=== PATIENT | female | born 1945 | race Caucasian/White ===

== ENCOUNTER 2017-01-09 14:42 | Emergency (ER) | payer MEDICARE, MEDICAID ==
[2017-01-09] MEDS ORDERED: ONDANSETRON 4 MG TAB.RAPDIS PO ONE (15:23)
[2017-01-09] MEDS ORDERED: OXYCODONE-ACETAMINOPHEN 5-325 MG TABLET PO ONE (15:23)
--- NOTE | 2017-01-09 15:25 | ER Document Report ---
ED Fall - General Chief Complaint: Fall Stated Complaint: FALL/ LEFTT SIDE PAIN Time Seen by Provider: 01/09/17 15:23 Notes: Patient is a 71-year-old female who comes emergency department for chief complaint of pain down most of her right side after a fall. She fell 2 days ago. She tripped over a baby carriage and landed on her right side. She denies head injury, neck pain, focal numbness or weakness, incontinence or bowel changes. She is not on a blood thinner. She has very few medical problems and is only treated for asthma, arthritis. Family is with her. TRAVEL OUTSIDE OF THE [place] IN LAST 30 DAYS: No Past Medical History - General Information source: Patient - Social History Smoking Status: Never Smoker Frequency of alcohol use: None Drug Abuse: None Lives with: Family Family History: Reviewed & Not Pertinent Pulmonary Medical History: Reports: Hx Asthma Renal/ Medical History: Denies: Hx Peritoneal Dialysis Musculoskeltal Medical History: Reports Hx Arthritis - Immunizations Immunizations up to date: Yes Hx Diphtheria, Pertussis, Tetanus Vaccination: Yes Review of Systems - Review of Systems Constitutional: No symptoms reported EENT: No symptoms reported Cardiovascular: No symptoms reported Respiratory: No symptoms reported Gastrointestinal: No symptoms reported Genitourinary: No symptoms reported Female Genitourinary: No symptoms reported Musculoskeletal: See HPI Skin: No symptoms reported Hematologic/Lymphatic: No symptoms reported Neurological/Psychological: No symptoms reported Physical Exam - Vital signs Vitals: Temp Pulse Resp BP Pulse Ox 98.5 F 106 H 16 153/88 H 94 01/09/17 14:49 01/09/17 14:49 01/09/17 14:49 01/09/17 14:49 01/09/17 14:49 Interpretation: Normal - General General appearance: Appears well, Alert In distress: None - HEENT Head: Normocephalic, Atraumatic Eyes: Normal Conjunctiva: Normal Extraocular movements intact: Yes Eyelashes: Normal Pupils: PERRL Nasal: Normal Mouth/Lips: Normal Mucous membranes: Normal Pharynx: Normal Neck: Normal - Respiratory Respiratory status: No respiratory distress Chest status: Tender - tender over right anterior lower ribs; no bruising, deformity, crepitus Breath sounds: Normal Chest palpation: Normal - Cardiovascular Rhythm: Regular. No: Tachycardia Heart sounds: Normal auscultation, S1 appreciated, S2 appreciated Murmur: No - Abdominal Inspection: Normal Distension: No distension Bowel sounds: Normal Tenderness: Nontender. No: Tender Organomegaly: No organomegaly - Back Back: Tender - Tender over lumbar and right paraspinal areas, no saddle anesthesia, normal thoracic and cervical exam, normal distal neurovascular exam , normal upper and lower extremity strength. - Extremities General upper extremity: Normal inspection, Nontender, Normal color, Normal ROM , Normal temperature General lower extremity: Other - Tender over right hip and proximal thigh, tender over proximal tibia and slightly over the knee generally; no swelling or deformity - Neurological Neuro grossly intact: Yes Cognition: Normal Orientation: AAOx4 [place] Coma Scale Eye Opening: Spontaneous [place] Coma Scale Verbal: Oriented [place] Coma Scale Motor: Obeys Commands [place] Coma Scale Total: 15 Speech: Normal Motor strength normal: LUE, RUE, LLE, RLE Sensory: Normal - Psychological Associated symptoms: Normal affect, Normal mood - Skin Skin Temperature: Warm Skin Moisture: Dry Skin Color: Normal Course - Re-evaluation Re-evalutation: Patient moves stiffly and has difficulty getting comfortable. However she can ambulate without difficulty. - Vital Signs Vital signs: Temp Pulse Resp BP Pulse Ox 98.1 F 79 18 147/78 H 97 01/09/17 16:44 01/09/17 16:44 01/09/17 16:44 01/09/17 16:44 01/09/17 16:44 - Diagnostic Test Radiology reviewed: Image reviewed, Reports reviewed Discharge - Discharge Clinical Impression: Rib pain, Right hip pain Fall Qualifiers: Encounter type: initial encounter Qualified Code(s): W19.XXXA - Unspecified fall, initial encounter Right knee pain Qualifiers: Chronicity: acute Qualified Code(s): M25.561 - Pain in right knee Condition: Stable Disposition: HOME, SELF-CARE Additional Instructions: No fractures are seen on your imaging, your evaluation is most consistent with soft tissue injury but no other abnormalities are found. I recommend using the patches, applying ice to your knee as well, use the pain medication if needed, if you use the pain medication also use the stool softener to avoid constipation. Follow-up with orthopedics referral for additional management. Return to the emergency department for any concerning symptoms including difficulty breathing , numbness, loss of bowel or bladder control, or any other concerning symptoms. Prescriptions: Docusate Sodium [Colace 100 mg Capsule] 100 mg PO DAILY #30 capsule Lidocaine [Lidoderm 5% (700 mg) Transdermal Patch] 1 patch TP DAILY #30 adh..patch Oxycodone HCl/Acetaminophen [Percocet 5-325 mg Tablet] 1 - 2 tab PO Q4H PRN #10 tablet PRN Reason: Referrals: STEPH BASS MD [ACTIVE STAFF] - Follow up in 1 week
--- NOTE | 2017-01-09 16:20 | RADIOLOGY REPORT (SQ) ---
EXAM DESCRIPTION: HIP RIGHT AP/LATERAL COMPLETED DATE/TIME: 01/09/2017 4:00 pm REASON FOR STUDY: fall, pain COMPARISON: None. NUMBER OF VIEWS: Two views. TECHNIQUE: AP pelvis and additional frog-leg view of the right hip. LIMITATIONS: None. FINDINGS: MINERALIZATION: Osteopenic RIGHT HIP: No fracture or dislocation. No worrisome bone lesions. No significant right hip joint sp alma narrowing or bony spurring. LEFT HIP: No fracture or dislocation. No worrisome bone lesions. No significant left hip joint spac e narrowing or bony spurring. PUBIS AND ISCHIUM: No fracture. PELVIS: No fracture. SACRUM: No fracture or dislocation. No worrisome bone lesions. LOWER LUMBAR SPINE: Disc space narrowing and facet arthropathy at L4-5 and L5-S1. SOFT TISSUES: No findings. OTHER: No other significant finding. IMPRESSION: No acute fracture right hip TECHNICAL DOCUMENTATION: JOB ID: [id number] [employer]- All Rights Reserved
--- NOTE | 2017-01-09 16:22 | RADIOLOGY REPORT (SQ) ---
EXAM DESCRIPTION: KNEE RIGHT 4 VIEWS COMPLETED DATE/TIME: 01/09/2017 4:00 pm REASON FOR STUDY: fall, pain COMPARISON: None. NUMBER OF VIEWS: Four views. TECHNIQUE: AP, lateral, and both oblique radiographic images acquired of the right knee. LIMITATIONS: None. FINDINGS: MINERALIZATION: Osteopenic BONES: No acute fracture or dislocation. No worrisome bone lesions. JOINT: Small suprapatellar knee joint effusion. Mild medial compartment joint space narrowing and aminata ny spurring. SOFT TISSUES: No soft tissue swelling. No radio-opaque foreign body. OTHER: No other significant finding. IMPRESSION: No acute fracture or malalignment. Small suprapatellar knee joint effusion TECHNICAL DOCUMENTATION: JOB ID: [id number] [employer]- All Rights Reserved
--- NOTE | 2017-01-09 16:23 | RADIOLOGY REPORT (SQ) ---
EXAM DESCRIPTION: L SPINE WHOLE COMPLETED DATE/TIME: 01/09/2017 4:00 pm REASON FOR STUDY: fall, pain COMPARISON: None. NUMBER OF VIEWS: Five views including obliques. TECHNIQUE: AP, lateral, oblique, and sacral radiographic images acquired of the lumbar spine. LIMITATIONS: None. FINDINGS: MINERALIZATION: Osteopenic SEGMENTATION: Normal. No transitional anatomy. ALIGNMENT: Normal. VERTEBRAE: Maintained height. No fracture or worrisome bone lesion. DISCS: Diffuse disc space loss of height most pronounced at L4-5 and L5-S1 POSTERIOR ELEMENTS: Pedicles and facets are intact. No pars defect or posterior arch defects. Bilat eral lower lumbar facet arthropathy with joint space narrowing and bony spurring at L3-4, L4-5, and L 5-S1 HARDWARE: None in the spine. PARASPINAL SOFT TISSUES: Normal. PELVIS: Intact as visualized. No fractures or worrisome bone lesions. SI joints intact. OTHER: Clips right upper quadrant post cholecystectomy IMPRESSION: Diffuse degenerative changes. No acute findings TECHNICAL DOCUMENTATION: JOB ID: [id number] [employer]- All Rights Reserved
--- NOTE | 2017-01-09 16:25 | RADIOLOGY REPORT (SQ) ---
EXAM DESCRIPTION: RIBS RIGHT W/PA CHEST COMPLETED DATE/TIME: 01/09/2017 4:00 pm REASON FOR STUDY: fall, right rib pain COMPARISON: None. TECHNIQUE: Frontal view of the chest and additional views of the right ribs acquired. NUMBER OF VIEWS: PA chest, right rib detail two views LIMITATIONS: None. FINDINGS: FRONTAL CXR: No pneumothorax. No pleural effusion. No atelectasis or infiltrates. Cardi ac silhouette size, abena unremarkable. RIBS: No displaced rib fractures. No lytic or blastic bony lesions. OTHER: No other significant finding. IMPRESSION: NO PNEUMOTHORAX. NO DISPLACED RIB FRACTURES. COMMENT: SITE OF TRAUMA/COMPLAINT MARKED/STAMP COMPLETED: Yes TECHNICAL DOCUMENTATION: JOB ID: [id number] [employer]- All Rights Reserved
[2017-01-09 16:45] VITALS: BP 147/78
== END 2017-01-09 16:45 | disposition home or self-care (01) ==
LOC: ER 14:42
DX: R07.81 Pleurodynia (principal); M25.561 Pain in right knee; M25.551 Pain in right hip; W01.0XXA Fall on same level from slipping, tripping and stumbling without subsequent striking against object, initial encounter
CPT/HCPCS: 99283; 73502; 73564; 72110; 71101; A9270 ×2; S0119

== ENCOUNTER 2017-01-18 14:32 | Observation (INO) | payer MEDICARE, MEDICAID ==
[~2017-01-18 14:32] MED LIST: AMINOPHYLLINE INJ/PF 250 MG/10 ML SDV IV ONE; REGADENOSON INJ 0.4 MG/5 ML DISP.SYRIN IV ONE
--- NOTE | 2017-01-18 15:14 | ER Document Report ---
ED Medical Screen (RME) - General Chief Complaint: Chest Pain Stated Complaint: CHEST PAIN Time Seen by Provider: 01/18/17 15:12 Notes: Patient presents with chest pain going to the left arm. She also feels weak and short of breath. Her heart has been racing. Some nausea. Patient denies any previous history of coronary artery disease. No previous history of pulmonary embolism. She states she has had several weeks of a right leg swelling. She states she was told this was secondary to a "bad knee". Patient denies tobacco use. Patient denies hormone use. Patient denies any cough cold or congestion. TRAVEL OUTSIDE OF THE [place] IN LAST 30 DAYS: No - Related Data Allergies/Adverse Reactions: Sulfa (Sulfonamide Antibiotics) Allergy (Verified 01/18/17 14:55) latex Adverse Reaction (Verified 01/18/17 15:06) Past Medical History - Social History Chew tobacco use (# tins/day): No Frequency of alcohol use: None Drug Abuse: None Pulmonary Medical History: Reports: Hx Asthma Renal/ Medical History: Denies: Hx Peritoneal Dialysis Musculoskeltal Medical History: Reports Hx Arthritis Past Surgical History: Reports: Hx Cholecystectomy, Hx Gynecologic Surgery - ovary removal - Immunizations Immunizations up to date: Yes Hx Diphtheria, Pertussis, Tetanus Vaccination: Yes Physical Exam - Vital signs Vitals: Temp Pulse Resp BP Pulse Ox 98.0 F 111 H 18 133/65 H 99 01/18/17 14:55 01/18/17 14:55 01/18/17 14:55 01/18/17 14:55 01/18/17 14:55 Course - Vital Signs Vital signs: Temp Pulse Resp BP Pulse Ox 98.0 F 111 H 18 133/65 H 99 01/18/17 14:55 01/18/17 14:55 01/18/17 14:55 01/18/17 14:55 01/18/17 14:55
[2017-01-18 16:11] LABS: ABSOLUTE BASOPHILS # (AUTO) 0.1 10^3/uL (0.0-0.2); ABSOLUTE EOSINOPHILS # (AUTO) 0.1 10^3/uL (0.0-0.6); ABSOLUTE LYMPHOCYTES (AUTO) 2.9 10^3/uL (0.5-4.7); ABSOLUTE MONOCYTES (AUTO) 1.1 10^3/uL (0.1-1.4); ABSOLUTE NEUT (AUTO) 7.4 10^3/uL (1.7-8.2); BASOPHILS % (AUTO) 0.5 % (0-2); EOSINOPHILS % (AUTO) 0.7 % (0-6); HEMATOCRIT 44.4 % (36.0-47.0); HEMOGLOBIN 14.7 g/dL (12.0-15.5); HGB HCT DIFFERENCE -0.3; LYMPHOCYTES % (AUTO) 25.4 % (13-45); MEAN CORPUSCULAR HEMOGLOBIN 29.3 pg (27.0-33.4); MEAN CORPUSCULAR HGB CONC 33.1 g/dL (32.0-36.0); MEAN CORPUSCULAR VOLUME 89 fl (80-97); MONOCYTES % (AUTO) 9.5 % (3-13); RED BLOOD COUNT 5.02 10^6/uL (3.72-5.28); RED CELL DISTRIBUTION WIDTH 14.4 % (11.5-14.0); SEGMENTED NEUTROPHILS % (AUTO) 63.9 % (42-78); WHITE BLOOD COUNT 11.6 10^3/uL (4.0-10.5)
[2017-01-18 16:22] LABS: ALANINE AMINOTRANSFERASE 25 U/L (9-52); ALBUMIN 4.5 g/dL (3.5-5.0); ALKALINE PHOSPHATASE 81 U/L (38-126); ANION GAP 8 (5-19); ASPARTATE AMINO TRANSFERASE 17 U/L (14-36); BILIRUBIN,DIRECT 0.3 mg/dL (0.0-0.4); BILIRUBIN,TOTAL 0.4 mg/dL (0.2-1.3); BLOOD UREA NITROGEN 15 mg/dL (7-20); CALCIUM 10.7 mg/dL (8.4-10.2); CARBON DIOXIDE 32 mmol/L (22-30); CHLORIDE 102 mmol/L (98-107); CREATININE RESULT 0.68 mg/dL (0.52-1.25); GLUCOSE 77 mg/dL (75-110); POTASSIUM 4.3 mmol/L (3.6-5.0); SODIUM 141.9 mmol/L (137-145); TOTAL PROTEIN 7.9 g/dL (6.3-8.2)
--- NOTE | 2017-01-18 16:45 | RADIOLOGY REPORT (SQ) ---
EXAM DESCRIPTION: CHEST PA/LAT COMPLETED DATE/TIME: 01/18/2017 4:34 pm REASON FOR STUDY: sob/cp COMPARISON: None. EXAM PARAMETERS: NUMBER OF VIEWS: two views TECHNIQUE: Digital Frontal and Lateral radiographic views of the chest acquired. RADIATION DOSE: NA LIMITATIONS: none FINDINGS: LUNGS AND PLEURA: No opacities, masses or pneumothorax. No pleural effusion. MEDIASTINUM AND HILAR STRUCTURES: No masses or contour abnormalities. HEART AND VASCULAR STRUCTURES: Heart normal size. No evidence for failure. BONES: No acute findings. HARDWARE: None in the chest. OTHER: No other significant finding. IMPRESSION: NO SIGNIFICANT RADIOGRAPHIC FINDING IN THE CHEST. TECHNICAL DOCUMENTATION: JOB ID: [id number] [employer]- All Rights Reserved
--- NOTE | 2017-01-18 17:00 | ER Document Report ---
ED Cardiac - General Chief Complaint: Chest Pain Stated Complaint: CHEST PAIN Time Seen by Provider: 01/18/17 15:12 Mode of Arrival: Ambulatory Information source: Patient TRAVEL OUTSIDE OF THE [place] IN LAST 30 DAYS: No - HPI Patient complains to provider of: Chest pain Was the onset of pain: Gradual Is the pain a: New problem Quality of pain: Achy Chest pain radiation location: Left arm, Neck Severity now: Moderate Severity at worst: Moderate Chest pain precipitating factors: At Rest Associated symptoms: Shortness of breath, Weakness Exacerbated by: Denies Relieved by: Nothing Similar symptoms previously: No Recently seen / treated by doctor: No Notes: Patient is a 71-year-old female with a history of asthma and arthritis who presents to the emergency room today for 3 day history of left-sided chest pain that radiates to the left neck and left arm, it is associated with generalized malaise, shortness of breath, patient is from [place], having come down here approximately 1 month ago by car to stay with her daughter and is planning on moving to the area eventually, she has no history of coronary artery disease, she does report some intermittent leg cramps, no history of DVT, no hormone replacement therapy - Related Data Allergies/Adverse Reactions: Sulfa (Sulfonamide Antibiotics) Allergy (Verified 01/18/17 14:55) latex Adverse Reaction (Verified 01/18/17 15:06) Home Medications: Current Home Medications Albuterol Sulfate [Proair HFA] 2 puff IH QIDP PRN 01/18/17 [History] Budesonide/Formoterol Fumarate [Symbicort Hfa 160-4.5 Mcg Inhaler 6 gm] 2 puff IH Q12 01/18/17 [History] Cetirizine HCl [Zyrtec 10 mg Tablet] 1 tab PO DAILY 01/18/17 [History] Docusate Sodium [Colace 100 mg Capsule] 100 mg PO DAILY 01/18/17 [History] Famotidine [Pepcid 20 mg Tablet] 20 mg PO QAM 01/18/17 [History] Fluticasone Propionate [Flonase Nasal [place] 50 Mcg/[place] 16 gm] 2 sprays NASL DAILY 01/18/17 [History] Lorazepam [Ativan 0.5 mg Tablet] 0.5 mg PO DAILYP PRN 01/18/17 [History] Olopatadine HCl [Pazeo] 1 drop OU DAILY 01/18/17 [History] Tramadol HCl [Ultram 50 mg Tablet] 50 mg PO Q8HP PRN 01/18/17 [History] Trazodone HCl [Desyrel] 75 mg PO QHS 01/18/17 [History] Past Medical History - General Information source: Patient - Social History Smoking Status: Never Smoker Chew tobacco use (# tins/day): No Frequency of alcohol use: None Drug Abuse: None Family History: Reviewed & Not Pertinent Pulmonary Medical History: Reports: Hx Asthma Renal/ Medical History: Denies: Hx Peritoneal Dialysis Musculoskeltal Medical History: Reports Hx Arthritis Past Surgical History: Reports: Hx Cholecystectomy, Hx Gynecologic Surgery - ovary removal - Immunizations Immunizations up to date: Yes Hx Diphtheria, Pertussis, Tetanus Vaccination: Yes Review of Systems - Review of Systems Constitutional: Malaise EENT: No symptoms reported Cardiovascular: See HPI Respiratory: See HPI Gastrointestinal: No symptoms reported Genitourinary: No symptoms reported Female Genitourinary: No symptoms reported Musculoskeletal: No symptoms reported Skin: No symptoms reported Hematologic/Lymphatic: No symptoms reported Neurological/Psychological: No symptoms reported -: Yes All other systems reviewed and negative Physical Exam - Vital signs Vitals: Temp Pulse Resp BP Pulse Ox 98.0 F 111 H 18 133/65 H 99 01/18/17 14:55 01/18/17 14:55 01/18/17 14:55 01/18/17 14:55 01/18/17 14:55 Interpretation: Normal - General General appearance: Appears well, Alert - HEENT Head: Normocephalic, Atraumatic Eyes: Normal Conjunctiva: Normal Extraocular movements intact: Yes Eyelashes: Normal Pupils: PERRL Neck: Other - Tenderness to palpate in left sternocleidomastoid muscle - Respiratory Respiratory status: No respiratory distress Chest status: Nontender Breath sounds: Normal Chest palpation: Normal - Cardiovascular Rhythm: Tachycardia Heart sounds: Normal auscultation Murmur: No - Abdominal Inspection: Normal Distension: No distension Bowel sounds: Normal Tenderness: Nontender Organomegaly: No organomegaly - Back Back: Normal, Nontender - Extremities General upper extremity: Normal inspection, Nontender, Normal color, Normal ROM , Normal temperature General lower extremity: Normal inspection, Nontender, Normal color, Normal ROM , Normal temperature, Normal weight bearing. No: Timo's sign - Neurological Neuro grossly intact: Yes Cognition: Normal Orientation: AAOx4 [place] Coma Scale Eye Opening: Spontaneous [place] Coma Scale Verbal: Oriented [place] Coma Scale Motor: Obeys Commands [place] Coma Scale Total: 15 Speech: Normal Motor strength normal: LUE, RUE, LLE, RLE Sensory: Normal - Psychological Associated symptoms: Normal affect, Normal mood - Skin Skin Temperature: Warm Skin Moisture: Dry Skin Color: Normal Course - Re-evaluation Re-evalutation: 01/19/17 00:48 Patient's evaluation in the emergency room is unremarkable thus far, however her symptoms are concerning for coronary artery disease, therefore she was discussed with the hospitalist who agrees to admit for further evaluation and treatment - Vital Signs Vital signs: Temp Pulse Resp BP Pulse Ox 98.4 F 89 18 133/61 H 97 01/18/17 21:53 01/18/17 21:53 01/18/17 21:53 01/18/17 21:53 01/18/17 21:53 - Laboratory Result Diagrams: 01/18/17 15:45 01/18/17 15:45 Laboratory results interpreted by me: 01/18/17 01/18/17 15:45 15:45 WBC 11.6 H RDW 14.4 H Carbon Dioxide 32 H Calcium 10.7 H - Diagnostic Test Radiology reviewed: Image reviewed, Reports reviewed - EKG Interpretation by Wy EKG shows normal: Sinus rhythm Rate: Tachycardia - Transfer of Care Care transferred to following provider: Dr. Webber Discharge - Discharge Clinical Impression: Chest pain Qualifiers: Chest pain type: unspecified Qualified Code(s): R07.9 - Chest pain, unspecified Condition: Stable Disposition: ADMITTED OBSERVATION Admitting Provider: Hospitalist Unit Admitted: Telemetry
--- NOTE | 2017-01-18 17:54 | RADIOLOGY REPORT (SQ) ---
EXAM DESCRIPTION: CTA CHEST COMPLETED DATE/TIME: 01/18/2017 5:21 pm REASON FOR STUDY: SOB COMPARISON: 01/19/2016 TECHNIQUE: CT scan of the chest performed using helical scanning technique with dynamic intravenous contrast injection. Images reviewed with lung, soft tissue and bone windows. Reconstructed coronal and sagittal MPR images reviewed. Additional 3 dimensional post-processing performed to develop Maximal Intensity Projection images (PR P). All images stored on PACS. All CT scanners at this facility use dose modulation, iterative reconstruction, and/or weight based d osing when appropriate to reduce radiation dose to as low as reasonably achievable (ALARA). [facility]: Dose Right [facility]: CareDose [facility]: Dose Right [facility]: Teradose 4D [facility]: SiSense CONTRAST TYPE AND DOSE: contrast/concentration: Isovue 370.00 mg/ml; Total Contrast Delivered: 63.0 ml; Total Saline Delivered: 103.1 ml RENAL FUNCTION: GFR > 60. RADIATION DOSE: Up-to-date CT equipment and radiation dose reduction techniques were employed. CTDIv ol: 14.3 - 16.5 mGy. DLP: 514 mGy-cm. . LIMITATIONS: None. FINDINGS: LUNGS AND PLEURA: No masses, infiltrates, pneumothorax. No pleural effusions, calcificati ons. AORTA AND GREAT VESSELS: No aneurysm or dissection. HEART: No pericardial effusion. PULMONARY ARTERIES: No emboli visualized in the main pulmonary arteries or the segmental branches. HILAR AND MEDIASTINAL STRUCTURES: No identified masses or abnormal nodes. HARDWARE: None in the chest. UPPER ABDOMEN: No significant findings. Limited exam. THYROID AND OTHER SOFT TISSUES: No masses. No adenopathy. BONES: No acute or significant finding. 3D MIPS: Confirm above findings. OTHER: No other significant finding. IMPRESSION: NORMAL CTA OF THE CHEST. NO PULMONARY EMBOLI. TECHNICAL DOCUMENTATION: JOB ID: [id number] Quality ID # [id number]: Final reports with documentation of one or more dose reduction techniques (e.g., Au tomated exposure control, adjustment of the mA and/or kV according to patient size, use of iterative reconstruction technique) 2010 [employer]- All Rights Reserved
[2017-01-18] MEDS ORDERED: ASPIRIN 81 MG TABLET, CHEWABLE PO ONE (18:19)
[2017-01-18] MEDS ORDERED: LACTULOSE SYRUP 20 GM/30 ML UDCUP PO ONE (19:41)
[2017-01-18] MEDS ORDERED: NITROGLYCERIN 0.4 MG/TAB 25 TAB/BOTTLE SL PRN (19:42)
[2017-01-18] MEDS ORDERED: MAG HYDROX/AL HYDROX/SIMETH SUSP 30 ML UDCUP PO PRN (19:42)
[2017-01-18 22:23] LABS: CREATINE KINASE MB 0.97 ng/mL (<4.55)
[2017-01-18 22:27] LABS: TROPONIN I < 0.012 ng/mL
[2017-01-18] MEDS ORDERED: BUDESONIDE/FORMOTEROL 160-4.5 MCG 60 PUFF/6 GM MDI IH ONE ×2 (22:57→23:15)
[2017-01-18] MEDS ORDERED: TRAZODONE HCL 50 MG TABLET PO ONE (23:00)
[2017-01-18] MEDS: ATORVASTATIN CALCIUM 80 MG TABLET PO SCH (23:08)
[2017-01-18] MEDS: HEPARIN SOD (PORCINE) 5,000 UNIT/ML 1 ML SYRINGE SUBCUT SCH (23:08)
--- NOTE | 2017-01-18 23:19 | EKG REPORT ---
SEVERITY:- ABNORMAL ECG - SINUS TACHYCARDIA RIGHT ATRIAL ABNORMALITY : Confirmed by: Ronit House 18-Jan-2017 23:18:59
--- NOTE | 2017-01-19 03:19 | PDOC H&P ---
History of Present Illness Admission Date/PCP: 01/18/17 19:42 Patient complains of: Left-sided chest pain History of Present Illness: RADHA AMOS is a 71 year old female with a past medical history of asthma , osteoarthritis and anxiety. Presenting after 5 days of left-sided chest pain occurring while at rest aching and crushing in nature 3 out of 5 intensity radiating to the left neck and shoulder reproducible by palpation of the musculature of the chest wall. Associated with shortness of breath. Deep breathing and moving seem to exacerbate the pain and alleviated by rest. Patient admits previous episode of chest pain associated with asthma and cough prompting and treadmill stress test 2 months ago which is reportedly normal. In the emergency room she had a unremarkable workup including EKG, cardiac enzymes and CTA of the chest she is referred to the hospitalist for evaluation. Past Medical History Pulmonary Medical History: Reports: Asthma Musculoskeltal Medical History: Reports: Arthritis Psychiatric Medical History: Reports: General Anxiety Disorder Past Surgical History Past Surgical History: Reports: Cholecystectomy Social History Information Source: Patient Lives with: Alone Smoking Status: Never Smoker Frequency of Alcohol Use: None Hx Recreational Drug Use: No Hx Prescription Drug Abuse: No - Advance Directive Resuscitation Status: Full Code Family History Family History: CAD, Malignancy Parental Family History Reviewed: Yes Children Family History Reviewed: Yes Sibling(s) Family History Reviewed.: Yes Medication/Allergy Home Medications: Albuterol Sulfate [Proair HFA] 2 puff IH QIDP PRN 01/18/17 Budesonide/Formoterol Fumarate [Symbicort Hfa 160-4.5 Mcg Inhaler 6 gm] 2 puff IH Q12 01/18/17 Cetirizine HCl [Zyrtec 10 mg Tablet] 1 tab PO DAILY 01/18/17 Docusate Sodium [Colace 100 mg Capsule] 100 mg PO DAILY 01/18/17 Famotidine [Pepcid 20 mg Tablet] 20 mg PO QAM 01/18/17 Fluticasone Propionate [Flonase Nasal [place] 50 Mcg/[place] 16 gm] 2 sprays NASL DAILY 01/18/17 Lorazepam [Ativan 0.5 mg Tablet] 0.5 mg PO DAILYP PRN 01/18/17 Olopatadine HCl [Pazeo] 1 drop OU DAILY 01/18/17 Tramadol HCl [Ultram 50 mg Tablet] 50 mg PO Q8HP PRN 01/18/17 Trazodone HCl [Desyrel] 75 mg PO QHS 01/18/17 Allergies/Adverse Reactions: Sulfa (Sulfonamide Antibiotics) Allergy (Verified 01/18/17 14:55) latex Adverse Reaction (Verified 01/18/17 15:06) Review of Systems Constitutional: ABSENT: chills, fever(s), headache(s), weight gain, weight loss Eyes: ABSENT: visual disturbances Ears: ABSENT: hearing changes Cardiovascular: ABSENT: chest pain, dyspnea on exertion, edema, orthropnea, palpitations Respiratory: ABSENT: cough, hemoptysis Gastrointestinal: ABSENT: abdominal pain, constipation, diarrhea, hematemesis, hematochezia, nausea, vomiting Genitourinary: ABSENT: dysuria, hematuria Musculoskeletal: ABSENT: joint swelling Integumentary: ABSENT: rash, wounds Neurological: ABSENT: abnormal gait, abnormal speech, confusion, dizziness, focal weakness, syncope Psychiatric: ABSENT: anxiety, depression, homidical ideation, suicidal ideation Endocrine: ABSENT: cold intolerance, heat intolerance, polydipsia, polyuria Hematologic/Lymphatic: ABSENT: easy bleeding, easy bruising Physical Exam Vital Signs: Temp Pulse Resp BP Pulse Ox 98.4 F 89 18 133/61 H 97 01/18/17 21:53 01/18/17 21:53 01/18/17 21:53 01/18/17 21:53 01/18/17 21:53 Intake & Output 01/17/17 01/18/17 01/19/17 11:59 11:59 11:59 Weight 57.4 kg General appearance: PRESENT: no acute distress, cooperative, well-developed, well-nourished Head exam: PRESENT: atraumatic, normocephalic Eye exam: PRESENT: conjunctiva pink, EOMI, PERRLA. ABSENT: scleral icterus Ear exam: PRESENT: normal external ear exam Mouth exam: PRESENT: moist, tongue midline Neck exam: ABSENT: carotid bruit, JVD, lymphadenopathy, thyromegaly Respiratory exam: PRESENT: clear to auscultation elliot. ABSENT: accessory muscle use, crackles, decreased breath sounds, prolonged expiratory phas, rales, rhonchi, wheezes Cardiovascular exam: PRESENT: RRR. ABSENT: diastolic murmur, rubs, systolic murmur Pulses: PRESENT: normal dorsalis pedis pul Vascular exam: PRESENT: normal capillary refill GI/Abdominal exam: PRESENT: normal bowel sounds, soft. ABSENT: distended, guarding, mass, organolmegaly, rebound, tenderness Torso Front/Back Image: 1 - Pain to palpation of musculature Rectal exam: PRESENT: deferred Extremities exam: PRESENT: full ROM. ABSENT: calf tenderness, clubbing, pedal edema Musculoskeletal exam: PRESENT: other - Left upper chest wall tender to palpation. Neurological exam: PRESENT: alert, awake, oriented to person, oriented to place , oriented to time, oriented to situation, CN II-XII grossly intact. ABSENT: motor sensory deficit Psychiatric exam: PRESENT: anxious Skin exam: PRESENT: dry, intact, warm. ABSENT: cyanosis, rash Results Laboratory Results: 01/18/17 21:50 CK-MB (CK-2) 0.97 Troponin I < 0.012 Impressions: Chest X-Ray 01/18/17 15:12 IMPRESSION: NO SIGNIFICANT RADIOGRAPHIC FINDING IN THE CHEST. Chest/Abdomen CTA 01/18/17 17:00 IMPRESSION: NORMAL CTA OF THE CHEST. NO PULMONARY EMBOLI. Assessment & Plan - Diagnosis (1) Chest pain Qualifiers: Chest pain type: unspecified Qualified Code(s): R07.9 - Chest pain, unspecified Is this a current diagnosis for this admission?: Yes Plan: Atypical chest pain though the patient's pain is atypical there are multiple risk factors for coronary artery disease and subsequently will observe and evaluation of acute coronary syndrome versus coronary artery disease with anginal equivalents. Cardiac monitoring blood pressure Q6 hours ,TSH, lipid profile, serial cardiac enzymes and cardiac stress test (2) Anxiety Is this a current diagnosis for this admission?: Yes Plan: Trazodone as needed (3) Constipation Is this a current diagnosis for this admission?: Yes Plan: Lactulose and Colace ordered - Time Time Spent: 30 to 50 Minutes
[2017-01-19 04:40] LABS: ANION GAP 11 (5-19); BLOOD UREA NITROGEN 17 mg/dL (7-20); CALCIUM 9.8 mg/dL (8.4-10.2); CARBON DIOXIDE 27 mmol/L (22-30); CHLORIDE 103 mmol/L (98-107); CHOLESTEROL 244.81 mg/dL (0-200); CREATINE KINASE 37 U/L (30-135); CREATININE RESULT 0.79 mg/dL (0.52-1.25); Direct HDL 57 mg/dL (>40); GLUCOSE 105 mg/dL (75-110); POTASSIUM 4.6 mmol/L (3.6-5.0); SODIUM 140.8 mmol/L (137-145); TRIGLYCERIDES 203 mg/dL (<150)
[2017-01-19 04:51] LABS: DIRECT LDL 140 mg/dL (<100)
[2017-01-19 04:53] LABS: TROPONIN I < 0.012 ng/mL; VLDL CHOLESTEROL 40.6 mg/dL (10-31)
[2017-01-19] MEDS: HEPARIN SOD (PORCINE) 5,000 UNIT/ML 1 ML SYRINGE SUBCUT SCH ×3 (05:19→22:09)
[2017-01-19] MEDS: BUDESONIDE/FORMOTEROL 160-4.5 MCG 60 PUFF/6 GM MDI IH SCH ×2 (10:56→22:04)
[2017-01-19] MEDS: DOCUSATE SODIUM 100 MG CAPSULE PO SCH (10:57)
[2017-01-19] MEDS ORDERED: ALBUTEROL SULFATE HFA (90 MCG/PUFF) 8 GM MDI (1 MDI/ER DISP) IH PRN (11:00)
[2017-01-19] MEDS ORDERED: LORAZEPAM 0.5 MG TABLET PO PRN (11:00)
[2017-01-19] MEDS ORDERED: TRAMADOL HCL 50 MG TABLET PO PRN (11:00)
[2017-01-19 11:24] LABS: CREATINE KINASE MB 0.95 ng/mL (<4.55)
[2017-01-19 11:27] LABS: TROPONIN I < 0.012 ng/mL
[2017-01-19] MEDS ORDERED: ALBUTEROL SULFATE HFA (90 MCG/PUFF) 200 PUFF/8.5 GM MDI IH PRN (11:30)
[2017-01-19] MEDS ORDERED: FLUTICASONE NASAL SPRAY 50 MCG/SPRY 120 SPRAY/16 GM NASL ONE (12:30)
[2017-01-19] MEDS ORDERED: FAMOTIDINE 20 MG TABLET PO ONE (12:30)
[2017-01-19] MEDS ORDERED: CETIRIZINE 10 MG TABLET PO ONE (12:30)
[2017-01-19 13:53] LABS: APPEARANCE,URINE SLIGHTLY-CLOUDY; BILIRUBIN,URINE NEGATIVE (NEGATIVE); GLUCOSE, URINE NEGATIVE (NEGATIVE); KETONES,URINE NEGATIVE (NEGATIVE); LEUKOCYTE ESTERASE,URINE MODERATE (NEGATIVE); NITRITE,URINE NEGATIVE (NEGATIVE); PROTEIN,URINE NEGATIVE (NEGATIVE); URINE SPECIFIC GRAVITY 1.026; UROBILINOGEN,URINE NEGATIVE mg/dL (<2.0)
[2017-01-19] MEDS ORDERED: LIDOCAINE 5% (700 MG) TRANSDERMAL ADH..PATCH TP ONE (14:15)
[2017-01-19] MEDS: LIDOCAINE 5% (700 MG) TRANSDERMAL ADH..PATCH TP SCH (14:38)
--- NOTE | 2017-01-19 15:45 | PDOC PROGRESS REPORT ---
Subjective Progress Note for:: 01/19/17 Subjective:: Patient still complains of some substernal pain that radiates up into her throat area. She does have acid reflux. Physical Exam Vital Signs: Temp Pulse Resp BP Pulse Ox 98.4 F 86 18 133/61 H 97 01/18/17 21:53 01/19/17 07:00 01/18/17 21:53 01/18/17 21:53 01/18/17 21:53 Intake & Output 01/18/17 01/19/17 01/20/17 06:59 06:59 06:59 Intake Total 440 Output Total 650 Balance -210 Weight 57.4 kg General appearance: PRESENT: no acute distress Eye exam: PRESENT: conjunctiva pink. ABSENT: scleral icterus Mouth exam: PRESENT: moist, tongue midline Neck exam: ABSENT: JVD Respiratory exam: PRESENT: clear to auscultation elliot. ABSENT: rales, rhonchi, wheezes Cardiovascular exam: PRESENT: RRR. ABSENT: diastolic murmur, rubs, systolic murmur GI/Abdominal exam: PRESENT: normal bowel sounds, soft. ABSENT: distended, guarding, mass, organolmegaly, rebound, tenderness Extremities exam: ABSENT: calf tenderness, clubbing, pedal edema Neurological exam: PRESENT: alert, awake, oriented to person, oriented to place , oriented to time, oriented to situation, CN II-XII grossly intact. ABSENT: motor sensory deficit Psychiatric exam: PRESENT: appropriate affect Skin exam: PRESENT: dry, intact, warm. ABSENT: cyanosis, rash Results Laboratory Results: 01/19/17 04:05 01/19/17 01/19/17 04:05 13:27 Sodium 140.8 Potassium 4.6 Chloride 103 Carbon Dioxide 27 Anion Gap 11 BUN 17 Creatinine 0.79 Est GFR ( Amer) > 60 Est GFR (Non-Af Amer) > 60 Glucose 105 Calcium 9.8 Triglycerides 203 H Cholesterol 244.81 H LDL Cholesterol Direct 140 H VLDL Cholesterol 40.6 H HDL Cholesterol 57 Urine Color YELLOW Urine Appearance SLIGHTLY-CLOUDY Urine pH 5.0 Ur Specific [place] 1.026 Urine Protein NEGATIVE Urine Glucose (UA) NEGATIVE Urine Ketones NEGATIVE Urine Blood NEGATIVE Urine Nitrite NEGATIVE Ur Leukocyte Esterase MODERATE H Urine WBC (Auto) 1 Urine RBC (Auto) 0 01/18/17 01/19/17 01/19/17 21:50 04:05 04:05 Creatine Kinase 37 CK-MB (CK-2) 0.97 0.90 Troponin I < 0.012 < 0.012 01/19/17 10:07 Creatine Kinase CK-MB (CK-2) 0.95 Troponin I < 0.012 Impressions: Chest X-Ray 01/18/17 15:12 IMPRESSION: NO SIGNIFICANT RADIOGRAPHIC FINDING IN THE CHEST. Chest/Abdomen CTA 01/18/17 17:00 IMPRESSION: NORMAL CTA OF THE CHEST. NO PULMONARY EMBOLI. Assessment & Plan - Diagnosis (1) Chest pain Qualifiers: Chest pain type: unspecified Qualified Code(s): R07.9 - Chest pain, unspecified Is this a current diagnosis for this admission?: Yes Plan: This most likely represents gastroesophageal reflux disease. Patient reports that she had a treadmill stress test approximately 2 months ago in [place]. Given recurrent nature, Will ask cardiology to evaluate to see if any further intervention needs to be done. (2) Gastroesophageal reflux disease Is this a current diagnosis for this admission?: Yes Plan: Patient has taken Dexilant in the past for her gastroesophageal reflux disease. (3) Anxiety Is this a current diagnosis for this admission?: Yes Plan: Continue with trazodone and Ativan. - Time Time Spent with patient: 25-34 minutes
[2017-01-19] MEDS ORDERED: PHENAZOPYRIDINE HCL 100 MG TABLET PO ONE (16:00)
[2017-01-19] MEDS ORDERED: TRAZODONE HCL 75 MG PO SCH (22:00)
[2017-01-19] MEDS ORDERED: TRAZODONE HCL 50 MG TABLET PO SCH (22:00)
[2017-01-19] MEDS ORDERED: BUDESONIDE/FORMOTEROL 160-4.5 MCG 60 PUFF/6 GM MDI IH SCH (22:00)
[2017-01-19] MEDS: PHENAZOPYRIDINE HCL 100 MG TABLET PO SCH (22:03)
[2017-01-19] MEDS: ATORVASTATIN CALCIUM 80 MG TABLET PO SCH (22:09)
[2017-01-20] MEDS: HEPARIN SOD (PORCINE) 5,000 UNIT/ML 1 ML SYRINGE SUBCUT SCH (05:06)
[2017-01-20] MEDS ORDERED: FAMOTIDINE 20 MG TABLET PO SCH (08:00)
[2017-01-20] MEDS ORDERED: FLUTICASONE NASAL SPRAY 50 MCG/SPRY 120 SPRAY/16 GM NASL SCH ×2 (10:00)
[2017-01-20] MEDS ORDERED: (PENDING PHARMACY ID) (Olopatadine Hcl [Pazeo] 1 DROP) OU SCH (10:00)
[2017-01-20] MEDS ORDERED: OLOPATADINE HCL 0.1% OPH SOLN 5 ML OU SCH (10:00)
[2017-01-20] MEDS ORDERED: CETIRIZINE 10 MG TABLET PO SCH ×2 (10:00)
[2017-01-20] MEDS ORDERED: DOCUSATE SODIUM 100 MG CAPSULE PO SCH (10:00)
[2017-01-20] MEDS: BUDESONIDE/FORMOTEROL 160-4.5 MCG 60 PUFF/6 GM MDI IH SCH (10:37)
[2017-01-20] MEDS: PHENAZOPYRIDINE HCL 100 MG TABLET PO SCH (10:39)
[2017-01-20] MEDS: DOCUSATE SODIUM 100 MG CAPSULE PO SCH (10:40)
[2017-01-20] MEDS: LIDOCAINE 5% (700 MG) TRANSDERMAL ADH..PATCH TP SCH (10:40)
--- NOTE | 2017-01-20 12:23 | DRAGON STRESS TEST REPORT ---
INTRAVENOUS LEXISCAN CARDIOLITE STRESS TEST USING SINGLE PHOTON EMMISION COMPUTERIZED TOMOGRAPHIC. DATE OF PROCEDURE: January 20, 2017 INDICATION : Chest pain CARDIAC RISK FACTORS: Dyslipidemia RESTING EKG: Sinus rhythm without any baseline ST-T wave changes STRESS EKG: No significant changes noted with LexiScan bolus REASON FOR TERMINATION: Protocol. PROCEDURE REPORT: Baseline heart rate 117 beats per minute with blood pressure of 126/72. Patient had no significant complaints. Heart rate at 2 minutes post bolus 122 with a blood pressure of 155/79. 3 minutes post bolus heart rate 115 with blood pressure of 174/89. No significant EKG changes were noted. Patient had no significant complaints during the procedure or postprocedure. Patient injected with Aminophyllin 75 mg at 3 minutes or later after Lexiscan bolus. CONCLUSIONS: Normal EKG and hemodynamic response to IV LexiScan. NUCLEAR DATA: At rest the patient was given 9.80 millicuries of technetium 99 sestamibi injected intravenously. As per protocol rest gated SPECT images were obtained. Subsequently the patient was given intravenous LexiScan at a dose of 0.4 mg in 5 mL intravenously, followed by flush with normal saline. Subsequently the stress dose of 32.1 millicuries of technetium 99 sestamibi was injected intravenously. As per protocol stress gated images were obtained. NUCLEAR INTERPRETATION: Both raw and processed data were used for interpretation. Visual, qualitative, computer-generated quantitative data was used. There was good myocardial uptake of technetium compound. Motion artifact and soft tissue attenuations were noted. Increased visceral uptake was noted. No definitive areas of transient perfusion defect noted. No definitive areas of fixed perfusion defect or scars noted. EKG gated imaging showed LV EF at 49 %, rest and stress gated EF similar visually. T. I D. ratio was 0.86. Lung heart ratio noted to be within normal limits 0.34. No significant extracardiac and abnormal radiotracer activities were noted. RV free wall uptake was noted to be WNL. IMPRESSION: Also refer to comments under nuclear interpretation. Also test results needs to be interpreted in the context of pretest probability. 1. There is no definitive scintigraphic evidence of LexiScan induced myocardial ischemia. 2. There is no definitive scintigraphic evidence of myocardial infarction/scar. 3. EKG gated imaging shows left ventricular ejection fraction of approximately 49 %. 4. Clinical correlation requested as occasionally single vessel disease or balanced ischemia could be missed. In approximately 10% of the cases Lexiscan may not cause adequate vasodilatory stress. RECOMMENDATIONS: Aggressive risk factor modification, medical therapy. Clinical correlation with echocardiogram derived ejection fraction. Inability to exercise by itself can lead to increased cardiovascular event risks. Consider cardiology consultation and or follow-up if clinically indicated. I AM AVAILABLE FOR CARDIOLOGY CONSULTATION AND FOLLOWUP IF REQUESTED BY PMD Ronit House M.D., KAYLEIGH [employer] mimeographer, Board certified in cardiovascular diseases, Nuclear cardiology, Echocardiography Cardiac CT and cardiac MRI Ph. [phone] [facility]
--- NOTE | 2017-01-20 12:28 | XCELERA REPORT ---
[address] [address] Transthoracic Echocardiogram Report Name: RADHA AMOS Age: 71 yrs Gender: Female : 1945 Patient Status: Inpatient Patient Location: [address] [place] [address] Study Date: 01/20/2017 08:03 AM Height: 62 in Weight: 126 lb BSA: 1.6 m2 Procedure: A complete two-dimensional transthoracic echocardiogram was performed (2D, M-mode, spectral and color flow Doppler). The study was technically adequate with some images being suboptimal in quality. Reason For Study: CP Ordering Physician: RONIT TIPTON Performed By: Ashely Key Interpretation Summary The left ventricular ejection fraction is normal. Doppler measurements suggest pseudonormalized left ventricular relaxation, which is associated with grade II/IV or mild to moderate diastolic dysfunction There is normal left ventricular wall thickness. The left ventricle is grossly normal size. No regional wall motion abnormalities noted. The right ventricular systolic function is normal. The left atrial size is normal. The right atrium is normal. There is a trace amount of mitral regurgitation There is no mitral valve stenosis. No aortic regurgitation is present. There is no aortic valve stenosis There is a trace or physiologic amount of tricuspid regurgitation Tricuspid regurgitation jet envelope not well defined to measure RV systolic pressure accurately. The aortic root is not well visualized. The inferior vena cava appeared normal and decreased > 50% with respiration (RAP 5-10 mmHg) There is no pericardial effusion. MMode/2D Measurements & Calculations RVDd: 3.0 cm LVIDd: 4.5 cm FS: 26.9 % Ao root diam: 3.0 cm IVSd: 0.85 cm LVIDs: 3.3 cm EDV(Teich): 90.1 ml LVPWd: 0.89 cm ESV(Teich): 42.6 ml Ao root area: 7.0 cm2 EF(Teich): 52.7 % Doppler Measurements & Calculations MV E max leslie: MV dec slope: Ao V2 max: LV V1 max P.6 cm/sec 159.5 cm/sec 2.4 mmHg MV A max leslie: 312.1 cm/sec2 Ao max PG: LV V1 max: 84.3 cm/sec MV dec time: 10.2 mmHg 77.5 cm/sec MV E/A: 0.64 0.17 sec PA V2 max: 63.9 cm/sec PA max P.6 mmHg Left Ventricle The left ventricle is grossly normal size. There is normal left ventricular wall thickness. The left ventricular ejection fraction is normal. Doppler measurements suggest pseudonormalized left ventricular relaxation, which is associated with grade II/IV or mild to moderate diastolic dysfunction. No regional wall motion abnormalities noted. Right Ventricle The right ventricle is normal in size, thickness and function. There is normal right ventricular wall thickness. The right ventricular systolic function is normal. Atria The right atrium is normal. The left atrial size is normal. Interarterial septum not well visualized and not well dopplered. Cannot comment on ASD/PFO presence. Mitral Valve The mitral valve is grossly normal. There is no mitral valve stenosis. There is a trace amount of mitral regurgitation. Aortic Valve The aortic valve is grossly normal. There is no aortic valve stenosis. No aortic regurgitation is present. Tricuspid Valve The tricuspid valve is not well visualized, but is grossly normal. There is no tricuspid stenosis. There is a trace or physiologic amount of tricuspid regurgitation. Tricuspid regurgitation jet envelope not well defined to measure RV systolic pressure accurately. Pulmonic Valve The pulmonic valve is not well seen, but is grossly normal. Great Vessels The aortic root is not well visualized. The inferior vena cava appeared normal and decreased > 50% with respiration (RAP 5-10 mmHg). Effusions There is no pericardial effusion. : RONIT TIPTON > Ronit Tipton
[2017-01-20 13:35] VITALS: BP 133/61
--- NOTE | 2017-01-20 13:50 | PDOC DISCHARGE SUMMARY ---
General - Admit/Disc Date/PCP Admission Date/Primary Care Provider: 01/18/17 19:42 Discharge Date: 01/20/17 - Discharge Diagnosis (1) Chest pain Is this a current diagnosis for this admission?: Yes Summary: Most likely secondary to gastroesophageal reflux disease. Normal Cardiolite stress test and unremarkable echocardiogram. (2) Gastroesophageal reflux disease Is this a current diagnosis for this admission?: Yes Summary: Patient has been started on Dexilant (3) Anxiety Is this a current diagnosis for this admission?: Yes - Additional Information Resuscitation Status: Full Code Discharge Diet: Regular Discharge Activity: Activity As Tolerated Home Medications: Albuterol Sulfate [Proair HFA] 2 puff IH QIDP PRN 01/18/17 Cetirizine HCl [Zyrtec 10 mg Tablet] 1 tab PO DAILY 01/18/17 Docusate Sodium [Colace 100 mg Capsule] 100 mg PO DAILY 01/18/17 Lorazepam [Ativan 0.5 mg Tablet] 0.5 mg PO DAILYP PRN 01/18/17 Olopatadine HCl [Pazeo] 1 drop OU DAILY 01/18/17 Tramadol HCl [Ultram 50 mg Tablet] 50 mg PO Q8HP PRN 01/18/17 Trazodone HCl [Desyrel] 75 mg PO QHS 01/18/17 Budesonide/Formoterol Fumarate [Symbicort HFA 160-4.5 mcg Inhaler 6 gm] 2 puff IH Q12 #1 inhaler 01/20/17 Dexlansoprazole [Dexilant 60 mg Capsule] 60 mg PO DAILY #30 cap. 01/20/17 Fluticasone Propionate [Flonase Nasal [place] 50 Mcg/[place] 16 gm] 2 sprays NASL DAILY #1 spray.pump 01/20/17 Lidocaine [Lidoderm 5% (700 mg) Transdermal Patch] 1 patch TP DAILY adh..patch 01/20/17 History of Present Illness History of Present Illness: RADHA AMOS is a 71 year old female who presented with atypical chest pain. Patient had the pain both at rest and with exertion and did have some sour brash consistent with acid reflux. She also did have complaints of left neck pain radiating down her left arm. Patient was admitted for further workup. Hospital Course Hospital Course: 71-year-old female who presented with some atypical chest pain. The patient was monitored on telemetry and had normal cardiac enzymes. The patient was evaluated by cardiology in consultation and they performed an echocardiogram which showed normal ejection fraction with some very mild diastolic dysfunction. Patient then underwent a Cardiolite stress test which showed no evidence for ischemia. It is felt that her chest pain most likely is secondary to her gastroesophageal reflux disease and she is started on Dexilant which she had taken previously. The patient has a scheduled outpatient tests to see gastroenterology for colonoscopy next month. If she still having symptoms after taking the Dexilant I have suggested that she may need an EGD to evaluate the symptoms. Physical Exam Vital Signs: Temp Pulse Resp BP Pulse Ox 97.9 F 84 16 133/61 H 97 01/20/17 13:29 01/20/17 13:29 01/20/17 13:29 01/20/17 13:29 01/20/17 13:29 Intake & Output 01/19/17 01/20/17 01/21/17 06:59 06:59 06:59 Intake Total 440 2377 Output Total 650 1950 Balance -210 427 Weight 57.4 kg 55.3 kg General appearance: PRESENT: no acute distress Eye exam: PRESENT: conjunctiva pink. ABSENT: scleral icterus Neck exam: ABSENT: JVD Respiratory exam: PRESENT: clear to auscultation elliot. ABSENT: rales, rhonchi, wheezes Cardiovascular exam: PRESENT: RRR. ABSENT: diastolic murmur, rubs, systolic murmur Neurological exam: PRESENT: alert, awake, oriented to person, oriented to place , oriented to time, oriented to situation, CN II-XII grossly intact. ABSENT: motor sensory deficit Psychiatric exam: PRESENT: appropriate affect Results Laboratory Results: 01/19/17 04:05 01/19/17 13:27 Urine Color YELLOW Urine Appearance SLIGHTLY-CLOUDY Urine pH 5.0 Ur Specific [place] 1.026 Urine Protein NEGATIVE Urine Glucose (UA) NEGATIVE Urine Ketones NEGATIVE Urine Blood NEGATIVE Urine Nitrite NEGATIVE Ur Leukocyte Esterase MODERATE H Urine WBC (Auto) 1 Urine RBC (Auto) 0 01/18/17 01/19/17 01/19/17 21:50 04:05 04:05 Creatine Kinase 37 CK-MB (CK-2) 0.97 0.90 Troponin I < 0.012 < 0.012 01/19/17 10:07 Creatine Kinase CK-MB (CK-2) 0.95 Troponin I < 0.012 Impressions: Chest X-Ray 01/18/17 15:12 IMPRESSION: NO SIGNIFICANT RADIOGRAPHIC FINDING IN THE CHEST. Chest/Abdomen CTA 01/18/17 17:00 IMPRESSION: NORMAL CTA OF THE CHEST. NO PULMONARY EMBOLI. Qualifiers PATEINT BEING DISCHARGED WITH ANY OF THE FOLLOWING DIAGNOSIS?: No Plan Discharge Plan: Patient is discharged home in stable condition. She will follow-up with Dr. House in 1-2 weeks. Time Spent: Less than 30 Minutes
--- NOTE | 2017-01-20 19:38 | PDOC CONSULTATION ---
Consultation Consult Date: 01/19/17 Attending physician:: SIRENA FELIX Consult reason:: Chest pain History of Present Illness Admission Date/PCP: 01/18/17 19:42 Patient complains of: Chest pain History of Present Illness: RADHA AMOS is a 71 year old female with a past medical history of asthma , osteoarthritis and anxiety. Presenting after 5 days of left-sided chest pain occurring while at rest aching and crushing in nature 3 out of 5 intensity radiating to the left neck and shoulder reproducible by palpation of the musculature of the chest wall. Associated with shortness of breath. Deep breathing and moving seem to exacerbate the pain and alleviated by rest. Patient admits previous episode of chest pain associated with asthma and cough prompting and treadmill stress test 2 months ago which is reportedly normal. In the emergency room she had a unremarkable workup including EKG, cardiac enzymes and CTA of the chest. Patient did have recent plain treadmill stress test a few months ago at an hospital, results are reported to be negative by the patient. There is no prior history of heart catheterization. Patient does describe chronic problem with gastroesophageal reflux. Patient does claim that she is under some stress. Currently she is in transition to move to [place] to stay with her daughter and grandchildren. This history was obtained, supplemented and confirmed. Past Medical History Pulmonary Medical History: Reports: Asthma Musculoskeltal Medical History: Reports: Arthritis Psychiatric Medical History: Reports: General Anxiety Disorder Past Surgical History Past Surgical History: Reports: Cholecystectomy Social History Information Source: Patient Lives with: Alone Smoking Status: Never Smoker Frequency of Alcohol Use: None Hx Recreational Drug Use: No Hx Prescription Drug Abuse: No - Advance Directive Resuscitation Status: Full Code Surrogate healthcare decision maker:: Patient's daughter is the surrogate decision-maker Family History Family History: CAD, Malignancy Parental Family History Reviewed: Yes Children Family History Reviewed: Yes Sibling(s) Family History Reviewed.: Yes Medication/Allergy Home Medications: Albuterol Sulfate [Proair HFA] 2 puff IH QIDP PRN 01/18/17 Cetirizine HCl [Zyrtec 10 mg Tablet] 1 tab PO DAILY 01/18/17 Docusate Sodium [Colace 100 mg Capsule] 100 mg PO DAILY 01/18/17 Lorazepam [Ativan 0.5 mg Tablet] 0.5 mg PO DAILYP PRN 01/18/17 Olopatadine HCl [Pazeo] 1 drop OU DAILY 01/18/17 Tramadol HCl [Ultram 50 mg Tablet] 50 mg PO Q8HP PRN 01/18/17 Trazodone HCl [Desyrel] 75 mg PO QHS 01/18/17 Budesonide/Formoterol Fumarate [Symbicort HFA 160-4.5 mcg Inhaler 6 gm] 2 puff IH Q12 #1 inhaler 01/20/17 Dexlansoprazole [Dexilant 60 mg Capsule] 60 mg PO DAILY #30 cap. 01/20/17 Fluticasone Propionate [Flonase Nasal [place] 50 Mcg/[place] 16 gm] 2 sprays NASL DAILY #1 spray.pump 01/20/17 Lidocaine [Lidoderm 5% (700 mg) Transdermal Patch] 1 patch TP DAILY adh..patch 01/20/17 Allergies/Adverse Reactions: Sulfa (Sulfonamide Antibiotics) Allergy (Verified 01/18/17 14:55) latex Adverse Reaction (Verified 01/18/17 15:06) Review of Systems Review of Systems: Please see history of present illness and past medical history as wall. Constitutional: No fever or chills reported. Head : No recent chronic headaches, recent head injury. Eyes: No recent eye pain, diplopia, redness, discharge, acute visual changes. Ears: No recent chronic ear pain, acute hearing loss, ear discharge. Oral cavity: No recent ulcerations, bleeding, oral cavity discomfort. Neck: No recent acute neck pain reported. Hematologic: No recent easy bruising or bleeding or hematologic malignancy reported. Lymphatic: No recent lymphatic malignancy, chronic lymphadenopathy reported yet Cardiovascular system review: See history of present illness. Respiratory system review: No recent chronic cough, hemoptysis, blood clots in the lungs reported. Mild Shortness of breath on exertion Gastrointestinal system review: Negative for any recent acute or chronic abdominal pain, hematemesis, melena, recent change in bowel habits. History of gastroesophageal reflux. Genitourinary system review: No recent acute or chronic hematuria, flank pain, UTI etc. reported. Skin system review: Negative for any recent abnormal bruising, no rash, no pruritus reported. Neurologic: No prior history of strokes, mini strokes, seizure disorder. Psychologic: No history of major psychosis or major depression reported. History of anxiety and insomnia Musculoskeletal: Minor aches and pains reported. No acute joint swelling reported. Endocrine: No recent polyuria, polydipsia, recent heat or cold intolerance. Physical Exam Vital Signs: Temp Pulse Resp BP Pulse Ox 98.3 F 98 16 117/59 L 97 01/19/17 15:15 01/19/17 15:15 01/19/17 15:15 01/19/17 15:15 01/19/17 15:15 Intake & Output 01/18/17 01/19/17 01/20/17 06:59 06:59 06:59 Intake Total 440 1170 Output Total 650 300 Balance -210 870 Weight 57.4 kg Exam: GENERAL: well-nourished and in no acute distress. Alert and oriented x3 HEAD: Atraumatic, normocephalic. EYES: Pupils equal round and reactive to light, extraocular movements intact, sclera anicteric, conjunctiva are normal. ENT: TMs normal, nares patent, oropharynx clear without exudates. Moist mucous membranes. No oral ulcerations or bleeding gums noted NECK: supple without lymphadenopathy. Trachea is central. No cervical or axillary lymphadenopathy noted. Carotids are 2+, JVD WNL LUNGS: Respiration seems nonlabored, no significant accessory muscle action noted. Breath sounds clear to auscultation bilaterally and equal noted. No wheezes rales or rhonchi noted. No significant dullness noted on percussion. CHEST: Palpation of the chest wall shows no significant chest wall tenderness. No other significant abnormalities noted. HEART: [place] [employer], No PSH, 1/6 ALFONSO aortic area, 1/6 mccartney systolic murmur mitral area, no rubs, no gallops. ABDOMEN: Soft, no significant tenderness appreciated, normoactive bowel sounds. No guarding, no rebound. No rigidity noted . No masses appreciated. EXTREMITIES: Pedal pulses are 1-2+, no calf tenderness noted. No clubbing or cyanosis.trace to 1+ pedal edema noted NEUROLOGICAL: Focused neurological exam showed no significant neurologic deficit. Normal speech, no focal weakness appreciated. PSYCH: Normal mood, normal affect. Judgment and insight within normal limits. SKIN: No significant ecchymosis, rash, ulcerations or signs of pruritus noted. MUSCULOSKELETAL EXAM: No significant joint swelling noted. Results Laboratory Results: 01/19/17 04:05 01/19/17 01/19/17 04:05 13:27 Sodium 140.8 Potassium 4.6 Chloride 103 Carbon Dioxide 27 Anion Gap 11 BUN 17 Creatinine 0.79 Est GFR ( Amer) > 60 Est GFR (Non-Af Amer) > 60 Glucose 105 Calcium 9.8 Triglycerides 203 H Cholesterol 244.81 H LDL Cholesterol Direct 140 H VLDL Cholesterol 40.6 H HDL Cholesterol 57 Urine Color YELLOW Urine Appearance SLIGHTLY-CLOUDY Urine pH 5.0 Ur Specific [place] 1.026 Urine Protein NEGATIVE Urine Glucose (UA) NEGATIVE Urine Ketones NEGATIVE Urine Blood NEGATIVE Urine Nitrite NEGATIVE Ur Leukocyte Esterase MODERATE H Urine WBC (Auto) 1 Urine RBC (Auto) 0 01/18/17 01/19/17 01/19/17 21:50 04:05 04:05 Creatine Kinase 37 CK-MB (CK-2) 0.97 0.90 Troponin I < 0.012 < 0.012 01/19/17 10:07 Creatine Kinase CK-MB (CK-2) 0.95 Troponin I < 0.012 EKG Comments: Showed sinus rhythm, no acute ST-T wave changes noted Impressions: Chest X-Ray 01/18/17 15:12 IMPRESSION: NO SIGNIFICANT RADIOGRAPHIC FINDING IN THE CHEST. Chest/Abdomen CTA 01/18/17 17:00 IMPRESSION: NORMAL CTA OF THE CHEST. NO PULMONARY EMBOLI. Assessment & Plan - Diagnosis (1) Anxiety Is this a current diagnosis for this admission?: Yes (2) Chest pain Qualifiers: Chest pain type: unspecified Qualified Code(s): R07.9 - Chest pain, unspecified Is this a current diagnosis for this admission?: Yes (3) Constipation Is this a current diagnosis for this admission?: Yes (4) Gastroesophageal reflux disease Is this a current diagnosis for this admission?: Yes - Notes Notes: Chest pain: Patient has some typical and atypical features of chest pain. Cardiac enzymes so far has been negative. Electrocardiogram did not show any definitive ST segment changes. Multiple differential diagnoses exist in this patient. In descending order of probability this includes underlying coronary artery disease, gastroesophageal reflux, musculoskeletal pain, referred pain from elsewhere, anxiety panic disorder etc.Patient has significant cardiac risk factors, which indicates that there is a intermediate probability of chest discomfort coming from underlying CAD. Feel that it would need to be evaluated further. Discussed evaluation to assess this. In this regard risk benefits of nuclear stress test and other alternative processes were discussed in detail. The patient prefers to undergo nuclear stress test. The small risk of radiation , myocardial infarction, , cardiac arrhythmias, respiratory distress etc. were discussed. Patient understood the risks and gave informed consent. Nuclear stress test was therefore scheduled. For risk evaluation, patient is also being scheduled for a 2-D echocardiogram. Patient questions were answered. Anxiety: Discussed that panic attack is in the differential diagnosis but patient denied any history of panic attacks. Gastroesophageal reflux disease: Patient has history of gastroesophageal reflux disease. Patient describes history of prior endoscopy. Patient advised to continue proton pump inhibitors and other agents. Constipation: Currently constipated but patient also has intermittent diarrhea. Possible irritable bowel syndrome. Have requested for records to be available from [facility]. - Time Time Spent: 30 to 50 Minutes - CODE STATUS was discussed, patient remains full code. Surrogate decision-maker unchanged. Multiple medical problems were addressed. More than 50% of the time spent coordinating care, discussing management plans with involved caregivers. Management plans discussed with involved personnels. Medical decision making was of moderate to high complexity , patient's has multiple comorbidities. Medications reviewed and adjusted accordingly: Yes
--- NOTE | 2017-01-20 19:40 | PDOC PROGRESS REPORT ---
Subjective Progress Note for:: 01/20/17 Subjective:: Patient seems to be doing better with gradual improvement. Pt is denying any chest arm or neck discomfort. Patient denying any PND, orthopnea. Patient denied any sustained palpitations, dizziness, syncope, near syncope. Patient denying any fever chills. Patient denying any other significant discomfort. Patient is maintaining sinus rhythm. Review of systems: Rest review of systems negative. Medications: Medications have been reviewed. Nuclear stress test procedure was explained to the patient in detail. Risks benefits were discussed and informed consent was obtained. Alternatives were discussed. Patient informed that based on risk factors, physical exam, lab data findings and symptoms there is at least intermediate probability of underlying CAD. Nuclear stress test procedure was therefore scheduled. Physical Exam Vital Signs: Temp Pulse Resp BP Pulse Ox 97.9 F 84 16 133/61 H 97 01/20/17 13:29 01/20/17 13:29 01/20/17 13:29 01/20/17 13:29 01/20/17 13:29 Intake & Output 01/19/17 01/20/17 01/21/17 06:59 06:59 06:59 Intake Total 440 2377 540 Output Total 650 1950 500 Balance -210 427 40 Weight 57.4 kg 55.3 kg Exam: GENERAL: well-nourished and in no acute distress. Alert and oriented x3 HEAD: Atraumatic, normocephalic. EYES: Pupils equal round and reactive to light, extraocular movements intact, sclera anicteric, conjunctiva are normal. ENT: TMs normal, nares patent, oropharynx clear without exudates. Moist mucous membranes. No oral ulcerations or bleeding gums noted NECK: supple without lymphadenopathy. Trachea is central. No cervical or axillary lymphadenopathy noted. Carotids are 2+, JVD WNL LUNGS: Respiration seems nonlabored, no significant accessory muscle action noted. Breath sounds clear to auscultation bilaterally and equal noted. No wheezes rales or rhonchi noted. No significant dullness noted on percussion. CHEST: Palpation of the chest wall shows no significant chest wall tenderness. No other significant abnormalities noted. HEART: [place] [employer], No PSH, 1/6 ALFONSO aortic area, 1/6 mccartney systolic murmur mitral area, no rubs, no gallops. ABDOMEN: Soft, no significant tenderness appreciated, normoactive bowel sounds. No guarding, no rebound. No rigidity noted . No masses appreciated. EXTREMITIES: Pedal pulses are 1-2+, no calf tenderness noted. No clubbing or cyanosis.trace to 1+ pedal edema noted NEUROLOGICAL: Focused neurological exam showed no significant neurologic deficit. Normal speech, no focal weakness appreciated. PSYCH: Normal mood, normal affect. Judgment and insight within normal limits. SKIN: No significant ecchymosis, rash, ulcerations or signs of pruritus noted. MUSCULOSKELETAL EXAM: No significant joint swelling noted. Results Laboratory Results: 01/19/17 04:05 01/18/17 01/19/17 01/19/17 21:50 04:05 04:05 Creatine Kinase 37 CK-MB (CK-2) 0.97 0.90 Troponin I < 0.012 < 0.012 01/19/17 10:07 Creatine Kinase CK-MB (CK-2) 0.95 Troponin I < 0.012 EKG Comments: Sinus rhythm, no acute ST-T wave changes noted. Telemetry strip shows sinus rhythm. Impressions: Chest X-Ray 01/18/17 15:12 IMPRESSION: NO SIGNIFICANT RADIOGRAPHIC FINDING IN THE CHEST. Chest/Abdomen CTA 01/18/17 17:00 IMPRESSION: NORMAL CTA OF THE CHEST. NO PULMONARY EMBOLI. Assessment & Plan - Diagnosis (1) Anxiety Is this a current diagnosis for this admission?: Yes (2) Chest pain Qualifiers: Chest pain type: unspecified Qualified Code(s): R07.9 - Chest pain, unspecified Is this a current diagnosis for this admission?: Yes (3) Constipation Is this a current diagnosis for this admission?: Yes (4) Gastroesophageal reflux disease Is this a current diagnosis for this admission?: Yes - Notes Notes: Chest pain: Patient was seen multiple times. In the morning nuclear stress test procedure, risks benefits, alternatives were discussed. Patient seen during the stress test. Patient also seen after stress test when results were discussed with the patient in detail. Patient's questions were answered. Nuclear stress test results were discussed with the patient. Patient was informed that no definitive evidence of pharmacologic stress-induced ischemia noted. No definite fixed defects were noted. Patient informed that occasionally significant single vessel disease or balanced ischemia could be missed. However based on the current study results, would recommend aggressive risk factor modification and medical therapy. It may also be worthwhile to consider evaluation or empiric management of other causes of chest pain. Should no other cause be found and if persistent in having chest pain, then cardiac catheterization should be considered. Right now, recommendations are for aggressive risk factor modification and medical management. Gastroesophageal reflux disease: Currently stable. Constipation: Today patient complained of diarrhea therefore may have irritable bowel syndrome. Generalized anxiety disorder: Currently is stable. Patient encouraged to follow-up with me. - Time Time with patient: Greater than 35 minutes - Total time exceeds 40 minutes. CODE STATUS was discussed, patient remains full code. Surrogate decision-maker unchanged. Multiple medical problems were addressed. More than 50% of the time spent coordinating care, discussing management plans with involved caregivers. Management plans discussed with involved personnels. Medical decision making was of moderate to high complexity, patient's has multiple comorbidities.
== END 2017-01-20 14:15 | disposition home or self-care (01) ==
LOC: ER 14:32 → EH 19:42 → 5 21:40
PROVIDERS: ADMIT Internal Medicine; ATTEND Internal Medicine
DX: R07.89 Other chest pain (principal); K21.9 Gastro-esophageal reflux disease without esophagitis; F41.1 Generalized anxiety disorder; M54.2 Cervicalgia; K59.00 Constipation, unspecified; R19.7 Diarrhea, unspecified; J45.909 Unspecified asthma, uncomplicated; I51.89 Other ill-defined heart diseases; M19.90 Unspecified osteoarthritis, unspecified site; R53.1 Weakness; R53.81 Other malaise; R11.0 Nausea; Z79.899 Other long term (current) drug therapy; Z90.49 Acquired absence of other specified parts of digestive tract; Z82.49 Family history of ischemic heart disease and other diseases of the circulatory system; Z80.9 Family history of malignant neoplasm, unspecified
CPT/HCPCS: 93005; 99285; 36415 ×2; 82553 ×2; 82550; 85025; 80048; 80053; 81001; 84484 ×2; 85379; 80061; 93306; 93017; 71020; 78452; 71275; 93010; G0378 ×4; A9500; J2785; A9270 ×10; J3490 ×5; J0280; Q9969

== ENCOUNTER 2017-04-19 21:19 | Emergency (ER) | payer MEDICARE, MEDICAID ==
[2017-04-19] MEDS ORDERED: MORPHINE SULFATE 10 MG/ML INJ IV ONE (23:22)
[2017-04-19] MEDS ORDERED: NORMAL SALINE 1000 ML 1,000 ML IV ONE (23:23)
[2017-04-19] MEDS ORDERED: ONDANSETRON HCL INJ/PF 4 MG/2 ML SDV IV ONE (23:23)
[2017-04-19 23:57] LABS: ABSOLUTE BASOPHILS # (AUTO) 0.1 10^3/uL (0.0-0.2); ABSOLUTE EOSINOPHILS # (AUTO) 0.1 10^3/uL (0.0-0.6); ABSOLUTE LYMPHOCYTES (AUTO) 2.1 10^3/uL (0.5-4.7); ABSOLUTE MONOCYTES (AUTO) 0.8 10^3/uL (0.1-1.4); ABSOLUTE NEUT (AUTO) 5.9 10^3/uL (1.7-8.2); BASOPHILS % (AUTO) 0.8 % (0-2); EOSINOPHILS % (AUTO) 0.7 % (0-6); HEMATOCRIT 40.1 % (36.0-47.0); HEMOGLOBIN 13.4 g/dL (12.0-15.5); HGB HCT DIFFERENCE 0.1; LYMPHOCYTES % (AUTO) 23.7 % (13-45); MEAN CORPUSCULAR HEMOGLOBIN 29.2 pg (27.0-33.4); MEAN CORPUSCULAR HGB CONC 33.4 g/dL (32.0-36.0); MEAN CORPUSCULAR VOLUME 87 fl (80-97); MONOCYTES % (AUTO) 8.7 % (3-13); RED BLOOD COUNT 4.59 10^6/uL (3.72-5.28); RED CELL DISTRIBUTION WIDTH 12.8 % (11.5-14.0); SEGMENTED NEUTROPHILS % (AUTO) 66.1 % (42-78)
[2017-04-20 00:14] LABS: ALANINE AMINOTRANSFERASE 27 U/L (9-52); ALBUMIN 4.3 g/dL (3.5-5.0); ALKALINE PHOSPHATASE 77 U/L (38-126); ANION GAP 10 (5-19); ASPARTATE AMINO TRANSFERASE 23 U/L (14-36); BILIRUBIN,DIRECT 0.4 mg/dL (0.0-0.4); BILIRUBIN,TOTAL 0.6 mg/dL (0.2-1.3); BLOOD UREA NITROGEN 14 mg/dL (7-20); CALCIUM 10.1 mg/dL (8.4-10.2); CARBON DIOXIDE 28 mmol/L (22-30); CHLORIDE 102 mmol/L (98-107); CREATININE RESULT 0.67 mg/dL (0.52-1.25); GLUCOSE 88 mg/dL (75-110); LIPASE 64.1 U/L (23-300); POTASSIUM 4.1 mmol/L (3.6-5.0); SODIUM 140.3 mmol/L (137-145); TOTAL PROTEIN 7.3 g/dL (6.3-8.2)
--- NOTE | 2017-04-20 00:20 | ER Document Report ---
ED General - General Chief Complaint: Abdominal Pain Stated Complaint: ABDOMINAL PAIN Time Seen by Provider: 04/19/17 23:14 Notes: Patient is a 72-year-old female who presents with complaints of epigastric and left upper quadrant abdominal pain. This been ongoing now for several days. She had endoscopy and colonoscopy 1 month ago due to a history of weight loss. Her endoscopy showed gastritis. Colonoscopy showed some polyps which were removed. She has had no bleeding since then. No black or tarry stools. No vomiting of blood. No fevers. She does not drink alcohol. She does not have a gallbladder. She has no other complaints at this time. TRAVEL OUTSIDE OF THE [place] IN LAST 30 DAYS: No - Related Data Allergies/Adverse Reactions: Sulfa (Sulfonamide Antibiotics) Allergy (Verified 04/19/17 21:24) latex Adverse Reaction (Verified 04/19/17 21:24) Past Medical History - Social History Smoking Status: Never Smoker Frequency of alcohol use: None Drug Abuse: None Family History: CAD, Malignancy Patient has suicidal ideation: No Patient has homicidal ideation: No Pulmonary Medical History: Reports: Hx Asthma Renal/ Medical History: Denies: Hx Peritoneal Dialysis Musculoskeltal Medical History: Reports Hx Arthritis Past Surgical History: Reports: Hx Cholecystectomy, Hx Gynecologic Surgery - ovary removal - Immunizations Immunizations up to date: Yes Hx Diphtheria, Pertussis, Tetanus Vaccination: Yes Review of Systems - Review of Systems Notes: My Normal Review Basic REVIEW OF SYSTEMS: CONSTITUTIONAL : Denies fever, chills, or sweats. Denies recent illness. EENT: Denies eye, ear, throat, or mouth pain or symptoms. Denies nasal or sinus congestion. CARDIOVASCULAR: Denies chest pain. RESPIRATORY: Denies cough, cold, or chest congestion. Denies shortness of breath, difficulty breathing, or wheezing. GASTROINTESTINAL: Moderate epigastric abdominal pain worse with eating. Nausea. MUSCULOSKELETAL: Denies neck or back pain or joint pain or swelling. SKIN: Denies rash or skin lesions. NEUROLOGICAL: Denies altered mental status or loss of consciousness. Denies headache. Denies weakness or paralysis or loss of use of either side. Denies problems with gait or speech. Denies sensory or motor loss. ALL OTHER SYSTEMS REVIEWED AND NEGATIVE. Physical Exam - Vital signs Vitals: Temp Pulse Resp BP Pulse Ox 98.2 F 89 18 142/67 H 98 04/19/17 21:25 04/19/17 21:25 04/19/17 21:25 04/19/17 21:25 04/19/17 21:25 - Notes Notes: General Appearance: Well nourished, alert, cooperative, no acute distress, moderate obvious discomfort. Vitals: reviewed, See vital signs table. Head: no swelling or tenderness to the head Eyes: PERRL, EOMI, Conjuctiva clear Mouth: No decreasd moisture Neck: Supple, no neck tenderness, No thyromegaly Lungs: No wheezing, No rales, No rhonci, No accessory muscle use, good air exchange bilaterally. Heart: Normal rate, Regular rythm, No murmur, no rub Abdomen: Normal BS, soft, No rigidity, moderate epigastric and left upper quadrant abdominal tenderness palpation, No guarding, no rebound, no abdominal masses, no organomegaly Extremities: strength 5/5 in all extremities, good pulses in all extremities, no swelling or tenderness in the extremities, no edema. Skin: warm, dry, appropriate color, no rash Neuro: speech clear, oriented x 3, normal affect, responds appropriately to questions. Course - Re-evaluation Re-evalutation: 04/20/17 05:42 Morphine a little effect on patient's pain. This made her nauseous. I give the patient a GI cocktail which had of much more profound effect on her pain. Was a GI cocktail past she has did start to have pain come back. I suspect that she does have gastritis or nonbleeding ulcer based on her symptoms and history. I did obtain a CT scan of her abdomen pelvis because she has a history of weight loss with epigastric pain which sometimes can be indicative of pancreatic cancer. CT scan was negative. I will have her continue PPI. I will add Carafate to regimen. I talked about diet changes. Informed her that she must return to ER immediately if she has worsening pain, fevers, black stools, blood in her vomit, intractable vomiting, or she feels unwell. Patient agrees with plan will be discharged home. Dictation of this chart was performed using voice recognition software; therefore, there may be some unintended grammatical errors. - Vital Signs Vital signs: Temp Pulse Resp BP Pulse Ox 98.2 F 78 20 147/71 H 96 04/19/17 21:25 04/20/17 03:17 04/20/17 03:17 04/20/17 03:17 04/20/17 03:17 - Laboratory Result Diagrams: 04/19/17 23:50 04/19/17 23:50 Discharge - Discharge Clinical Impression: Abdominal pain Qualifiers: Abdominal location: left upper quadrant Qualified Code(s): R10.12 - Left upper quadrant pain Condition: Good Disposition: HOME, SELF-CARE Additional Instructions: I suspect that your pain is related to gastritis. Continue the Dexilant. I am adding Carafate which will help coat your stomach. [place] do clear liquids and jello for the next 3-4 days. Please than progress to very bland solid foods such as bread and white rice. return to the ER immediately if you have fevers, worsening pain, black stools, or have vomiting of blood as these are signs of a bleeding ulcer. You can stop taking the Bentyl. Prescriptions: Ondansetron [Zofran Odt 4 mg Tablet] 1 tab PO Q4H PRN #15 tab.rapdis PRN Reason: For Nausea/Vomiting Sucralfate [Carafate Susp 1 Gm/10 Ml Udcup] 1 gm PO ACHS 10 Days udc Forms: Parent Work Note, Return to Work Referrals: TATIANA BOSE PA-C [Primary Care Provider] - Follow up in 3-5 days
[2017-04-20] MEDS ORDERED: MORPHINE SULFATE 10 MG/ML INJ IV ONE (02:13)
--- NOTE | 2017-04-20 02:14 | RADIOLOGY REPORT (SQ) ---
EXAM DESCRIPTION: CT ABD/PELVIS WITH IV ONLY COMPLETED DATE/TIME: 04/20/2017 1:50 am REASON FOR STUDY: epigastric abdominal pain, left upper and left lower quadrants pain. Prior cholec ystectomy. COMPARISON: None. TECHNIQUE: CT scan of the abdomen and pelvis performed using helical scanning technique with dynamic intravenous contrast injection. No oral contrast. Images reviewed with lung, soft tissue, and bone windows. Reconstructed coronal and sagittal MPR images reviewed. Delayed images for evaluation of the urinary system also acquired. All images stored on PACS. All CT scanners at this facility use dose modulation, iterative reconstruction, and/or weight based d osing when appropriate to reduce radiation dose to as low as reasonably achievable (ALARA). [facility]: Dose Right [facility]: CareDose [facility]: Dose Right [facility]: Teradose 4D [facility]: Goodybag CONTRAST TYPE AND DOSE: contrast/concentration: Isovue 370.00 mg/ml; Total Contrast Delivered: 57.0 ml; Total Saline Delivered: 47.0 ml RENAL FUNCTION: Creatinine 0.67 RADIATION DOSE: CT Rad equipment meets quality standard of care and radiation dose reduction techniq ues were employed. CTDIvol: NaN - NaN mGy. DLP: 0 mGy-cm.. LIMITATIONS: None. FINDINGS: LOWER CHEST: No consolidation or pleural effusion. LIVER: Normal size. No masses. Mild intrahepatic biliary ductal dilation. SPLEEN: Normal size. PANCREAS: No significant calcifications. No adjacent inflammation or peripancreatic fluid collection s. Pancreatic duct not dilated. GALLBLADDER: Surgically absent. The common bile duct is dilated to 16 mm. ADRENAL GLANDS: No significant masses or asymmetry. RIGHT KIDNEY AND URETER: No significant calcifications. No hydronephrosis or hydroureter. LEFT KIDNEY AND URETER: There is a 1.3 cm cyst at the left kidney. No significant calcifications. No hydronephrosis or hydroureter. AORTA AND VESSELS: Atherosclerotic calcifications in the abdominal aorta and its branches. No abdomi nal aortic aneurysm. RETROPERITONEUM: No retroperitoneal adenopathy, hemorrhage or masses. BOWEL AND PERITONEAL CAVITY: No inflammatory changes. No free fluid or free air. There is sigmoid di verticulosis with no CT evidence of acute diverticulitis. APPENDIX: Not visualized. PELVIS: The urinary bladder is partially distended. No pelvic mass. No free fluid. ABDOMINAL WALL: No hernias. BONES: Degenerative changes in the spine. IMPRESSION: Dilation of the biliary tree status post remote cholecystectomy.Sigmoid diverticulosis. Otherwise, no acute findings. TECHNICAL DOCUMENTATION: JOB ID: [id number] PA- Quality ID # [id number]: Final reports with documentation of one or more dose reduction techniques (e.g., Au tomated exposure control, adjustment of the mA and/or kV according to patient size, use of iterative reconstruction technique) 2010 [employer]- All Rights Reserved
[2017-04-20] MEDS ORDERED: ONDANSETRON HCL INJ/PF 4 MG/2 ML SDV IV ONE (02:20)
[2017-04-20] MEDS ORDERED: MAG HYDROX/AL HYDROX/SIMETH SUSP 30 ML UDCUP PO ONE (02:21)
[2017-04-20] MEDS ORDERED: LIDOCAINE 2% VISCOUS SOLN 20 ML UDCUP PO ONE (02:21)
[2017-04-20] MEDS ORDERED: METOCLOPRAMIDE HCL ORAL SOLN 10 MG/10 ML UDCUP PO ONE (02:21)
[2017-04-20] MEDS ORDERED: HYDROCODONE/ACETAMINOPHEN 5-325 MG 6 TAB/DSPK PO PRN (03:14)
[2017-04-20] MEDS ORDERED: ONDANSETRON ODT 4 MG TAB (6 TAB/DSPK) PO PRN (03:14)
[2017-04-20] MEDS ORDERED: HYDROCODONE/ACETAMINOPHEN 5-325 MG TABLET PO ONE (03:15)
[2017-04-20 03:17] VITALS: BP 147/71
== END 2017-04-20 03:32 | disposition home or self-care (01) ==
LOC: ER 21:19
DX: R10.12 Left upper quadrant pain (principal); R10.13 Epigastric pain
CPT/HCPCS: 96376; 99284; 96361; 96374; 96375; 36415; 83690; 85025; 80053; 74177; J3490; A9270 ×4; J2270; J2405; J7030

== ENCOUNTER → 2017-11-02 | Outpatient (CLI) | payer MEDICARE, MEDICAID ==
--- NOTE | 2017-11-02 16:24 | RADIOLOGY REPORT (SQ) ---
EXAM DESCRIPTION: CHEST PA/LATERAL COMPLETED DATE/TIME: 11/02/2017 4:07 pm REASON FOR STUDY: PRE-OP COMPARISON: CT ANGIO CHEST 01/18/2017 EXAM PARAMETERS: NUMBER OF VIEWS: two views TECHNIQUE: Digital Frontal and Lateral radiographic views of the chest acquired. RADIATION DOSE: NA LIMITATIONS: none FINDINGS: LUNGS AND PLEURA: No opacities, masses or pneumothorax. No pleural effusion. MEDIASTINUM AND HILAR STRUCTURES: No masses or contour abnormalities. HEART AND VASCULAR STRUCTURES: Heart normal size. No evidence for failure. BONES: Osteoporotic. No thoracic compression deformities. HARDWARE: None in the chest. OTHER: No other significant finding. IMPRESSION: NO SIGNIFICANT RADIOGRAPHIC FINDING IN THE CHEST. TECHNICAL DOCUMENTATION: JOB ID: [id number] [employer]- All Rights Reserved Reading location - IP/workstation name: [email or web address]
[2017-11-02 16:53] LABS: ABSOLUTE BASOPHILS # (AUTO) 0.1 10^3/uL (0.0-0.2); ABSOLUTE EOSINOPHILS # (AUTO) 0.1 10^3/uL (0.0-0.6); ABSOLUTE LYMPHOCYTES (AUTO) 1.6 10^3/uL (0.5-4.7); ABSOLUTE MONOCYTES (AUTO) 0.6 10^3/uL (0.1-1.4); ABSOLUTE NEUT (AUTO) 5.2 10^3/uL (1.7-8.2); BASOPHILS % (AUTO) 0.8 % (0-2); EOSINOPHILS % (AUTO) 1.4 % (0-6); HEMATOCRIT 41.8 % (36.0-47.0); LYMPHOCYTES % (AUTO) 21.4 % (13-45); MEAN CORPUSCULAR HEMOGLOBIN 29.5 pg (27.0-33.4); MEAN CORPUSCULAR HGB CONC 33.5 g/dL (32.0-36.0); MEAN CORPUSCULAR VOLUME 88 fl (80-97); MONOCYTES % (AUTO) 7.4 % (3-13); PLATELET COUNT 310 10^3/uL (150-450); RED BLOOD COUNT 4.74 10^6/uL (3.72-5.28); RED CELL DISTRIBUTION WIDTH 14.1 % (11.5-14.0); TOTAL CELLS COUNTED % (AUTO) 100 %; WHITE BLOOD COUNT 7.6 10^3/uL (4.0-10.5)
[2017-11-02 17:06] LABS: ANION GAP 13 (5-19); BLOOD UREA NITROGEN 16 mg/dL (7-20); CALCIUM 10.5 mg/dL (8.4-10.2); CARBON DIOXIDE 29 mmol/L (22-30); CHLORIDE 102 mmol/L (98-107); GLUCOSE 88 mg/dL (75-110); POTASSIUM 4.8 mmol/L (3.6-5.0); SODIUM 144.2 mmol/L (137-145)
[2017-11-02 17:08] LABS: APPEARANCE,URINE CLEAR; BILIRUBIN,URINE NEGATIVE (NEGATIVE); COLOR,URINE YELLOW; GLUCOSE, URINE NEGATIVE (NEGATIVE); KETONES,URINE NEGATIVE (NEGATIVE); LEUKOCYTE ESTERASE,URINE NEGATIVE (NEGATIVE); NITRITE,URINE NEGATIVE (NEGATIVE); PROTEIN,URINE NEGATIVE (NEGATIVE); URINE SPECIFIC GRAVITY 1.021; UROBILINOGEN,URINE NEGATIVE mg/dL (<2.0)
--- NOTE | 2017-11-02 21:17 | EKG REPORT ---
SEVERITY:- ABNORMAL ECG - SINUS RHYTHM BIATRIAL ABNORMALITIES : Confirmed by: Flash Gonzalez MD 02-Nov-2017 21:16:08
== END ==
LOC: OD 15:18
PROVIDERS: ATTEND Orthopaedic Surgery
DX: Z01.89 Encounter for other specified special examinations (principal); Z01.812 Encounter for preprocedural laboratory examination; Z01.818 Encounter for other preprocedural examination
CPT/HCPCS: 36415; 71046; 80048; 81001; 85025; 93005; 93010

== ENCOUNTER 2018-08-06 12:54 | Emergency (ER) | payer MEDICARE, MEDICAID ==
--- NOTE | 2018-08-06 13:18 | ER Document Report ---
ED Medical Screen (RME) - General Chief Complaint: Breathing Difficulty Stated Complaint: DIFFICULTY BREATHING Time Seen by Provider: 08/06/18 13:12 Notes: RAPID MEDICAL EVALUATION DISCLOSURE I have seen this patient as part of a Rapid Medical Evaluation and, if applicable, placed any initially appropriate orders. The patient will be seen and fully evaluated, including a full history and physical exam, by a provider (in Main ED or Fast Track) when a room becomes available. 73-year-old female PMH asthma here with complaints of midsternal chest heaviness and shortness of breath ongoing for the past few days. She has been coughing some as well, dry cough. She has noticed that the dyspnea is worse with both exertion and laying flat. She has tried her albuterol inhaler and nebulizer treatment as well as Advair with no relief. She does not feel like she is wheezing. She denies previous history of congestive heart failure. EXAM CTAB No wheezing on my exam RRR TRAVEL OUTSIDE OF THE [place] IN LAST 30 DAYS: No - Related Data Allergies/Adverse Reactions: Sulfa (Sulfonamide Antibiotics) Allergy (Verified 08/06/18 12:56) latex Adverse Reaction (Verified 08/06/18 12:56) Swelling of hands and/or feet morphine Adverse Reaction (Verified 08/06/18 12:56) VOMITING Past Medical History - Past Medical History Cardiac Medical History: Reports: Hx Hypercholesterolemia Denies: Hx Atrial Fibrillation, Hx Congestive Heart Failure, Hx Coronary Artery Disease, Hx Heart Attack, Hx Hypertension, Hx Peripheral Vascular Disease, Hx Pulmonary Embolism, Hx Heart Murmur Pulmonary Medical History: Reports: Hx Asthma Denies: Hx Bronchitis, Hx COPD, Hx Pneumonia, Hx Respiratory Failure, Hx Sleep Apnea, Hx Tuberculosis Endocrine Medical History: Denies: Hx Hyperthyroidism, Hx Hypothyroidism Renal/ Medical History: Denies: Hx End Stage Renal Disease, Hx Kidney Stones, Hx Peritoneal Dialysis Malignancy Medical History: Denies: Hx Leukemia, Hx Lung Cancer GI Medical History: Reports: Hx Gastroesophageal Reflux Disease - pt states stomach gets upset easily, gastritis. Denies: Hx Crohn's Disease, Hx Hiatal Hernia, Hx Irritable Bowel, Hx Liver Failure, Hx Pancreatitis, Hx Ulcer Musculoskeltal Medical History: Reports Hx Arthritis - knee, Denies Hx Fibromyalgia, Denies Hx Muscular Dystrophy Psychiatric Medical History: Reports: Hx Depression - in the past, not being treated for many years Denies: Hx Bipolar Disorder, Hx Post Traumatic Stress Disorder, Hx Schizophrenia Traumatic Medical History: Reports: Hx Fractures - right hand/wrist Infectious Medical History: Denies: Hx HIV Past Surgical History: Reports: Hx Cholecystectomy, Hx Gynecologic Surgery - ovary removal, Hx Tubal Ligation. Denies: Hx Appendectomy, Hx Bowel Surgery, Hx Section, Hx Colostomy, Hx Coronary Artery Bypass Graft, Hx Gastric Bypass Surgery, Hx Herniorrhaphy, Hx Hysterectomy, Hx Mastectomy, Hx Pacemaker, Hx Tonsillectomy - Immunizations Immunizations up to date: Yes Hx Diphtheria, Pertussis, Tetanus Vaccination: Yes History of Influenza Vaccine for 02/2017 - 07/2017 Season: Refused Physical Exam - Vital signs Vitals: Temp Pulse Resp BP Pulse Ox 97.9 F 99 18 160/87 H 98 08/06/18 13:00 08/06/18 13:00 08/06/18 13:00 08/06/18 13:00 08/06/18 13:00 Course - Vital Signs Vital signs: Temp Pulse Resp BP Pulse Ox 97.9 F 99 18 160/87 H 98 08/06/18 13:00 08/06/18 13:00 08/06/18 13:00 08/06/18 13:00 08/06/18 13:00
--- NOTE | 2018-08-06 13:41 | RADIOLOGY REPORT (SQ) ---
EXAM DESCRIPTION: CHEST 2 VIEWS COMPLETED DATE/TIME: 08/06/2018 1:32 pm REASON FOR STUDY: CP SOB COMPARISON: 01/18/2017 EXAM PARAMETERS: NUMBER OF VIEWS: two views TECHNIQUE: Digital Frontal and Lateral radiographic views of the chest acquired. RADIATION DOSE: NA LIMITATIONS: none FINDINGS: LUNGS AND PLEURA: No opacities, masses or pneumothorax. No pleural effusion. Chronic blun ting of the left posterior costophrenic angle. MEDIASTINUM AND HILAR STRUCTURES: No masses or contour abnormalities. HEART AND VASCULAR STRUCTURES: Heart normal size. No evidence for failure. BONES: No acute findings. HARDWARE: None in the chest. OTHER: No other significant finding. IMPRESSION: NO ACUTE RADIOGRAPHIC FINDING IN THE CHEST. TECHNICAL DOCUMENTATION: JOB ID: [id number] [employer]- All Rights Reserved Reading location - IP/workstation name: [email or web address]
[2018-08-06 14:08] LABS: ABSOLUTE EOSINOPHILS # (AUTO) 0.1 10^3/uL (0.0-0.6); ABSOLUTE LYMPHOCYTES (AUTO) 1.8 10^3/uL (0.5-4.7); ABSOLUTE MONOCYTES (AUTO) 0.5 10^3/uL (0.1-1.4); ABSOLUTE NEUT (AUTO) 4.4 10^3/uL (1.7-8.2); ALANINE AMINOTRANSFERASE 10 U/L (9-52); ALBUMIN 4.7 g/dL (3.5-5.0); ALKALINE PHOSPHATASE 80 U/L (38-126); ANION GAP 13 (5-19); ASPARTATE AMINO TRANSFERASE 21 U/L (14-36); BASOPHILS % (AUTO) 0.7 % (0-2); BILIRUBIN,DIRECT 0.3 mg/dL (0.0-0.4); BILIRUBIN,TOTAL 0.3 mg/dL (0.2-1.3); BLOOD UREA NITROGEN 10 mg/dL (7-20); CALCIUM 10.2 mg/dL (8.4-10.2); CARBON DIOXIDE 27 mmol/L (22-30); CHLORIDE 100 mmol/L (98-107); EOSINOPHILS % (AUTO) 0.9 % (0-6); GLUCOSE 89 mg/dL (75-110); HEMOGLOBIN 13.6 g/dL (12.0-15.5); LYMPHOCYTES % (AUTO) 27.1 % (13-45); MEAN CORPUSCULAR HEMOGLOBIN 29.6 pg (27.0-33.4); MEAN CORPUSCULAR VOLUME 87 fl (80-97); MONOCYTES % (AUTO) 6.8 % (3-13); PLATELET COUNT 315 10^3/uL (150-450); RED BLOOD COUNT 4.59 10^6/uL (3.72-5.28); RED CELL DISTRIBUTION WIDTH 13.4 % (11.5-14.0); SEGMENTED NEUTROPHILS % (AUTO) 64.5 % (42-78); SODIUM 140.1 mmol/L (137-145); TOTAL CELLS COUNTED % (AUTO) 100 %; TOTAL PROTEIN 7.7 g/dL (6.3-8.2); WHITE BLOOD COUNT 6.8 10^3/uL (4.0-10.5)
[2018-08-06 14:20] LABS: NT PRO BNP 255 pg/mL (5-900)
[2018-08-06 14:21] LABS: TROPONIN I < 0.012 ng/mL
[2018-08-06] MEDS ORDERED: ALBUTEROL SULFATE 0.083% NEB 2.5 MG/3 ML AMPUL NEB ONE (14:34)
[2018-08-06] MEDS ORDERED: IPRATROPIUM/ALBUTEROL 0.5-2.5 MG/3 ML AMPUL NEB ONE (14:34)
[2018-08-06] MEDS ORDERED: TRIAMCINOLONE ACETONIDE INJ 40 MG/1 ML VIAL IM ONE (14:35)
[2018-08-06] MEDS ORDERED: AZITHROMYCIN 250 MG TABLET PO ONE (14:36)
--- NOTE | 2018-08-06 14:41 | ER Document Report ---
ED General - General Chief Complaint: Breathing Difficulty Stated Complaint: DIFFICULTY BREATHING Time Seen by Provider: 08/06/18 13:12 TRAVEL OUTSIDE OF THE [place] IN LAST 30 DAYS: No - HPI Notes: Patient is a 73-year-old female that presents to the emergency department for chief complaint of shortness of breath. Patient reports history of asthma and asthma exacerbation for the last 2 days. She states that she has been using her home albuterol nebulizer every 6-8 hours for the last 2 days. She states she feels like she has a lot of mucus but is unable to get the mucus out of her lungs. She denies fevers and chills. She denies chest pain, headache, nausea, vomiting and abdominal pain. She does not use oxygen at home and reports one admission last year for her asthma exacerbation. Patient states that she does not do well on prednisone because it makes her very jittery and hyperactive and states she does not want to take that medication today. Past Medical History: Asthma Past Surgical History: Cholecystectomy Social History: Denies drugs alcohol and tobacco Family History: Reviewed and noncontributory for presenting illness Allergies: Reviewed, see documented allergy list. REVIEW OF SYSTEMS: CONSTITUTIONAL : No fever No chills No diaphoresis No recent illness EENT: No vision changes No congestion No sore throat CARDIOVASCULAR: No chest pain No palpitations RESPIRATORY: shortness of breath cough GASTROINTESTINAL: No abdominal pain No nausea No vomiting No diarrhea GENITOURINARY: No dysuria No hematuria No difficulty urinating MUSCULOSKELETAL: No back pain No leg pain No arm pain SKIN: No rashes No lesions LYMPHATIC: No swollen, enlarged glands. NEUROLOGICAL: No lightheadedness No headache No weakness No paresthesias PSYCHIATRIC: No anxiety No depression PHYSICAL EXAMINATION: Vital signs reviewed, nursing noted reviewed. GENERAL: Well-appearing, well-nourished and in no acute distress. HEAD: Atraumatic, normocephalic. EYES: Eyes appear normal, extraocular movements intact, sclera anicteric, conjunctiva are normal. ENT: nares patent, oropharynx clear without exudates. Moist mucous membranes. NECK: Normal range of motion, supple without lymphadenopathy LUNGS: Breath sounds diminished with bilateral wheezing. No accessory muscle use, tachypnea or respiratory distress. HEART: Regular rate and rhythm without murmurs ABDOMEN: Soft, nontender, normoactive bowel sounds. No rebound, guarding, or r igidity. No masses appreciated. EXTREMITIES: Nontender, good range of motion, no pitting or edema. NEUROLOGICAL: No focal neurological deficits. Moves all extremities spontaneously Motor and sensory grossly intact on exam. PSYCH: Normal mood, normal affect. SKIN: Warm, Dry, normal turgor, no rashes or lesions noted on exposed skin - Related Data Allergies/Adverse Reactions: Sulfa (Sulfonamide Antibiotics) Allergy (Verified 08/06/18 12:56) latex Adverse Reaction (Verified 08/06/18 12:56) Swelling of hands and/or feet morphine Adverse Reaction (Verified 08/06/18 12:56) VOMITING Past Medical History - Social History Smoking Status: Former Smoker Family History: CAD, Malignancy Patient has suicidal ideation: No Patient has homicidal ideation: No - Past Medical History Cardiac Medical History: Reports: Hx Hypercholesterolemia Denies: Hx Atrial Fibrillation, Hx Congestive Heart Failure, Hx Coronary Artery Disease, Hx Heart Attack, Hx Hypertension, Hx Peripheral Vascular Disease, Hx Pulmonary Embolism, Hx Heart Murmur Pulmonary Medical History: Reports: Hx Asthma Denies: Hx Bronchitis, Hx COPD, Hx Pneumonia, Hx Respiratory Failure, Hx Sleep Apnea, Hx Tuberculosis Endocrine Medical History: Denies: Hx Hyperthyroidism, Hx Hypothyroidism Renal/ Medical History: Denies: Hx End Stage Renal Disease, Hx Kidney Stones, Hx Peritoneal Dialysis Malignancy Medical History: Denies: Hx Leukemia, Hx Lung Cancer GI Medical History: Reports: Hx Gastroesophageal Reflux Disease - pt states stomach gets upset easily, gastritis. Denies: Hx Crohn's Disease, Hx Hiatal Hernia, Hx Irritable Bowel, Hx Liver Failure, Hx Pancreatitis, Hx Ulcer Musculoskeletal Medical History: Reports Hx Arthritis - knee, Denies Hx Fibromyalgia, Denies Hx Muscular Dystrophy Psychiatric Medical History: Reports: Hx Depression - in the past, not being treated for many years Denies: Hx Bipolar Disorder, Hx Post Traumatic Stress Disorder, Hx Schizophrenia Traumatic Medical History: Reports: Hx Fractures - right hand/wrist Infectious Medical History: Denies: Hx HIV Past Surgical History: Reports: Hx Cholecystectomy, Hx Gynecologic Surgery - ovary removal, Hx Tubal Ligation. Denies: Hx Appendectomy, Hx Bowel Surgery, Hx Section, Hx Colostomy, Hx Coronary Artery Bypass Graft, Hx Gastric Bypass Surgery, Hx Herniorrhaphy, Hx Hysterectomy, Hx Mastectomy, Hx Pacemaker, Hx Tonsillectomy - Immunizations Immunizations up to date: Yes Hx Diphtheria, Pertussis, Tetanus Vaccination: Yes Physical Exam - Vital signs Vitals: Temp Pulse Resp BP Pulse Ox 97.9 F 99 18 160/87 H 98 08/06/18 13:00 08/06/18 13:00 08/06/18 13:00 08/06/18 13:00 08/06/18 13:00 Course - Re-evaluation Re-evalutation: 08/06/18 14:41 Vitals reviewed. Nursing notes reviewed. Patient given albuterol, DuoNeb and Kenalog for symptom medic management. She does not wish to be on prednisone which is why the Kenalog was given. Her EKG today shows no acute ischemic changes and she is not complaining of any chest pain. I do not currently suspect ACS. Her chest x-ray shows no underlying pneumonia. The remainder of her lab work is unremarkable. Patient will be discharged home with azithromycin for mucus production and albuterol refills for her nebulizer. She was encouraged to increase her albuterol usage to every 4 hours. She will return to the emergency room if she is requiring the albuterol more frequently than every 4 hours or for new concerning symptoms otherwise she will see her primary care provider early next week. She is in agreement with plan of care and stable at discharge. Laboratory 08/06/18 08/06/18 08/06/18 13:24 13:24 13:24 WBC 6.8 RBC 4.59 Hgb 13.6 Hct 40.0 MCV 87 MCH 29.6 MCHC 34.0 RDW 13.4 Plt Count 315 Seg Neutrophils % 64.5 Lymphocytes % 27.1 Monocytes % 6.8 Eosinophils % 0.9 Basophils % 0.7 Absolute Neutrophils 4.4 Absolute Lymphocytes 1.8 Absolute Monocytes 0.5 Absolute Eosinophils 0.1 Absolute Basophils 0.0 Sodium 140.1 Potassium 4.0 Chloride 100 Carbon Dioxide 27 Anion Gap 13 BUN 10 Creatinine 0.65 Est GFR ( Amer) > 60 Est GFR (Non-Af Amer) > 60 Glucose 89 Calcium 10.2 Total Bilirubin 0.3 Direct Bilirubin 0.3 Neonat Total Bilirubin Not Reportable Neonat Direct Bilirubin Not Reportable Neonat Indirect Bili Not Reportable AST 21 ALT 10 Alkaline Phosphatase 80 Troponin I < 0.012 NT-Pro-B Natriuret Pep 255 Total Protein 7.7 Albumin 4.7 Chest X-Ray 08/06/18 13:15 IMPRESSION: NO ACUTE RADIOGRAPHIC FINDING IN THE CHEST. - Vital Signs Vital signs: Temp Pulse Resp BP Pulse Ox 97.9 F 99 10 L 160/87 H 98 08/06/18 13:00 08/06/18 13:00 08/06/18 14:05 08/06/18 13:00 08/06/18 13:00 - Laboratory Result Diagrams: 08/06/18 13:24 08/06/18 13:24 - EKG Interpretation by Me Additional EKG results interpreted by me: 08/06/18 14:43 Interpreted by myself [id number]: Normal sinus rhythm, rate 89, normal axis, no ectopy, no ST elevation Discharge - Discharge Clinical Impression: Asthma exacerbation Qualifiers: Asthma severity: mild Asthma persistence: intermittent Qualified Code(s): J45.21 - Mild intermittent asthma with (acute) exacerbation Condition: Stable Disposition: HOME, SELF-CARE Instructions: Asthma ([facility]) Additional Instructions: Please return to the emergency department if you have any worsening, or concern of your symptoms. Please return to the emergency department if you develop chest pain, difficulty breathing, severe abdominal pain, or ongoing vomiting. Please follow-up with your primary care physician in 2-3 days and any other recommended physicians. If prescribed, take all medications as directed. If you have any questions or concerns do not hesitate to return the emergency department for evaluation. Use your albuterol nebulizer every 4 hours as needed for cough and shortness of breath. If you are requiring your breathing treatment more frequently than every 4 hours you should be evaluated by your physician or in the emergency room again. Begin taking the azithromycin prescription on 08/07/2018 Prescriptions: Albuterol Sulfate [Albuterol Sulfate 5mg/1 mL] 5 mg PO Q4 PRN #30 ml PRN Reason: Cough Azithromycin [Zithromax 250 mg Tablet] 250 mg PO DAILY #4 tablet
[2018-08-06 15:54] VITALS: BP 132/61
--- NOTE | 2018-08-06 17:24 | EKG REPORT ---
SEVERITY:- BORDERLINE ECG - SINUS RHYTHM PROMINENT P WAVES, NONDIAGNOSTIC : Confirmed by: Flash Gonzalez MD 06-Aug-2018 17:23:06
== END 2018-08-06 16:07 | disposition home or self-care (01) ==
LOC: ER 12:54
DX: J45.21 Mild intermittent asthma with (acute) exacerbation (principal); R06.02 Shortness of breath; R05 Cough; Z88.2 Allergy status to sulfonamides; Z87.891 Personal history of nicotine dependence
CPT/HCPCS: 93005; 94640 ×2; 99285; 96372; 36415; 85025; 80053; 84484; 83880; 71046; 93010; A9270 ×3; J3490; J7620

== ENCOUNTER 2018-11-17 17:42 | Emergency (ER) | payer MEDICARE, MEDICAID ==
--- NOTE | 2018-11-17 20:46 | ER Document Report ---
ED Medical Screen (RME) - General Chief Complaint: Fall Injury Stated Complaint: FALL Time Seen by Provider: 11/17/18 20:44 Primary Care Provider: АЛЕКСАНДР JIMENES MD [Primary Care Provider] - Follow up as needed Notes: 73-year-old female with chief complaint of fall, she states she tripped on her shoes and fell hitting her face on the ground. She has bleeding from the top of her nose, she states she feels dizzy when she moves her eyes back and forth, she denies any other injuries. She is not on a blood thinner. No loss of consciousness or vomiting. Family at bedside. TRAVEL OUTSIDE OF THE [place] IN LAST 30 DAYS: No - Related Data Allergies/Adverse Reactions: Sulfa (Sulfonamide Antibiotics) Allergy (Verified 11/17/18 17:44) latex Adverse Reaction (Verified 11/17/18 17:44) Swelling of hands and/or feet morphine Adverse Reaction (Verified 11/17/18 17:44) VOMITING Past Medical History - Past Medical History Cardiac Medical History: Reports: Hx Hypercholesterolemia Denies: Hx Atrial Fibrillation, Hx Congestive Heart Failure, Hx Coronary Artery Disease, Hx Heart Attack, Hx Hypertension, Hx Peripheral Vascular Disease, Hx Pulmonary Embolism, Hx Heart Murmur Pulmonary Medical History: Reports: Hx Asthma Denies: Hx Bronchitis, Hx COPD, Hx Pneumonia, Hx Respiratory Failure, Hx Sleep Apnea, Hx Tuberculosis Endocrine Medical History: Denies: Hx Hyperthyroidism, Hx Hypothyroidism Renal/ Medical History: Denies: Hx End Stage Renal Disease, Hx Kidney Stones, Hx Peritoneal Dialysis Malignancy Medical History: Denies: Hx Leukemia, Hx Lung Cancer GI Medical History: Reports: Hx Gastroesophageal Reflux Disease - pt states stomach gets upset easily, gastritis. Denies: Hx Crohn's Disease, Hx Hiatal Hernia, Hx Irritable Bowel, Hx Liver Failure, Hx Pancreatitis, Hx Ulcer Musculoskeltal Medical History: Reports Hx Arthritis - knee, Denies Hx Fibromyalgia, Denies Hx Muscular Dystrophy Psychiatric Medical History: Reports: Hx Depression - in the past, not being treated for many years Denies: Hx Bipolar Disorder, Hx Post Traumatic Stress Disorder, Hx Schizophrenia Traumatic Medical History: Reports: Hx Fractures - right hand/wrist Infectious Medical History: Denies: Hx HIV Past Surgical History: Reports: Hx Cholecystectomy, Hx Gynecologic Surgery - ovary removal, Hx Tubal Ligation. Denies: Hx Appendectomy, Hx Bowel Surgery, Hx Section, Hx Colostomy, Hx Coronary Artery Bypass Graft, Hx Gastric Byp ass Surgery, Hx Herniorrhaphy, Hx Hysterectomy, Hx Mastectomy, Hx Pacemaker, Hx Tonsillectomy - Immunizations Immunizations up to date: Yes Hx Diphtheria, Pertussis, Tetanus Vaccination: Yes History of Influenza Vaccine for 02/2017 - 07/2017 Season: Refused Physical Exam - Vital signs Vitals: Temp Pulse Resp BP Pulse Ox 98.7 F 95 16 146/66 H 99 11/17/18 17:58 11/17/18 17:58 11/17/18 17:58 11/17/18 17:58 11/17/18 17:58 - HEENT Head: No: Atraumatic - Approximately 1 cm linear vertical laceration with small amount of bleeding over the nasal bridge, no other traumatic findings noted - Neurological Orientation: AAOx4 Shell Coma Scale Eye Opening: Spontaneous Lorraine Coma Scale Verbal: Oriented Shell Coma Scale Motor: Obeys Commands Lorraine Coma Scale Total: 15 Speech: Normal Cranial nerves: Normal Course - Re-evaluation Re-evalutation: I have greeted and performed a rapid initial assessment of this patient. A comprehensive ED assessment and evaluation of the patient, analysis of test results and completion of the medical decision making process will be conducted by additional ED providers. - Vital Signs Vital signs: Temp Pulse Resp BP Pulse Ox 98.7 F 95 16 146/66 H 99 11/17/18 17:58 11/17/18 17:58 11/17/18 17:58 11/17/18 17:58 11/17/18 17:58 Doctor's Discharge - Discharge Referrals: АЛЕКСАНДР JIMENES MD [Primary Care Provider] - Follow up as needed
--- NOTE | 2018-11-17 21:38 | RADIOLOGY REPORT (SQ) ---
EXAM DESCRIPTION: CT CERVICAL SPINE WITHOUT IV CONTRAST COMPLETED DATE/TME: 11/17/2018 00:00 CLINICAL HISTORY: 73 years Female fall COMPARISON: None. TECHNIQUE: Contiguous axial images obtained through the cervical spine without IV contrast. Coronal and sagittal reformatted images obtained. This exam was performed according to our department optimization program which includes automated exposure control, adjustment of the mA and/or kv according to patient size and/or use of iterative reconstruction technique. FINDINGS: Vertebral body alignment is unremarkable. No acute fractures. C3-4: Bilateral neural foraminal stenosis, severe on the left. C4-5: Severe left neural foraminal stenosis. C5-6: Severe bilateral neural foraminal stenosis. C6-7: Mild neural foraminal stenosis. No significant central canal stenosis is seen. IMPRESSION: No acute cervical spinal fracture is identified. Multilevel degenerative change
--- NOTE | 2018-11-17 21:58 | RADIOLOGY REPORT (SQ) ---
EXAM DESCRIPTION: CT HEAD WITHOUT IV CONTRAST COMPLETED DATE/TME: 11/17/2018 00:00 CLINICAL HISTORY: 73 years Female fall COMPARISON: None. TECHNIQUE: Contiguous axial CT images obtained through the brain without IV contrast. This exam was performed according to our department optimization program which includes automated exposure control, adjustment of the mA and/or kv according to patient size and/or use of iterative reconstruction technique. FINDINGS: The ventricles and sulci are within normal limits for the patient's age. No midline shift or mass effect. No masses identified. No acute intracranial hemorrhage. No fluid or significant mucosal thickening in the visualized paranasal sinuses. No depressed calvarial fractures. IMPRESSION: No acute intracranial abnormality is identified.
--- NOTE | 2018-11-17 21:58 | RADIOLOGY REPORT (SQ) ---
EXAM DESCRIPTION: CT MAXILLOFACIAL WITHOUT IV CONTRAST COMPLETED DATE/TME: 11/17/2018 00:00 CLINICAL HISTORY: 73 years Female fall COMPARISON: None. TECHNIQUE: Contiguous axial images obtained through the maxillofacial region without IV contrast. Reformatted images obtained. This exam was performed according to our department optimization program which includes automated exposure control, adjustment of the mA and/or kv according to patient size and/or use of iterative reconstruction technique. FINDINGS: The post septal orbits appear unremarkable. No fluid or significant mucosal thickening in the visualized paranasal sinuses. There is a laceration to the tip of the nasal bones. There is mild irregularity to the tip of the nasal bones which may reflect nondisplaced fracture. The nasal septum and nasal spine appear intact. No additional facial fracture is noted. IMPRESSION: Laceration to the tip of the nose with irregularity of the tip of the nasal bones concerning for fracture
[2018-11-17] MEDS ORDERED: TRAMADOL HCL 50 MG TABLET PO ONE (22:54)
[2018-11-17] MEDS ORDERED: LIDOCAINE 1% INJ-PF (10 MG/ML) 30 ML SDV INJ ONE (22:54)
[2018-11-17] MEDS ORDERED: LIDOCAINE 4%/TETRACAINE 0.5%/EPI 0.18% 5 ML TOPICAL SOLN TOP ONE (22:54)
[2018-11-17] MEDS ORDERED: ONDANSETRON 4 MG TAB.RAPDIS PO ONE (23:26)
[2018-11-17] MEDS ORDERED: ONDANSETRON ODT 4 MG TAB (6 TAB/ER DISP) PO PRN (23:49)
[2018-11-17] MEDS ORDERED: CEPHALEXIN 500 MG CAPSULE PO ONE (23:49)
--- NOTE | 2018-11-17 23:53 | ER Document Report ---
ED General - General Chief Complaint: Fall Injury Stated Complaint: FALL Time Seen by Provider: 11/17/18 20:44 Primary Care Provider: MILLER WISDOM MD [ACTIVE STAFF] - Follow up in 1 week Notes: Patient is a pleasant 73-year-old female presents with complaint of tripping over her own feet and falling and hitting her face on the floor. She says she hit directly onto her nose. No loss conscious. Patient had CT scans performed in triage which show a small nasal bone fracture. Remainder of her CT scans of her head and neck and face were negative. Patient denies any other injuries. No extremity pain. No chest pain. No abdominal pain. No weakness or numbness into her extremities. TRAVEL OUTSIDE OF THE [place] IN LAST 30 DAYS: No - Related Data Allergies/Adverse Reactions: Sulfa (Sulfonamide Antibiotics) Allergy (Verified 11/17/18 17:44) latex Adverse Reaction (Verified 11/17/18 17:44) Swelling of hands and/or feet morphine Adverse Reaction (Verified 11/17/18 17:44) VOMITING Past Medical History - Social History Smoking Status: Unknown if Ever Smoked Frequency of alcohol use: None Drug Abuse: None Family History: CAD, Malignancy - Past Medical History Cardiac Medical History: Reports: Hx Hypercholesterolemia Denies: Hx Atrial Fibrillation, Hx Congestive Heart Failure, Hx Coronary Artery Disease, Hx Heart Attack, Hx Hypertension, Hx Peripheral Vascular Disease, Hx Pulmonary Embolism, Hx Heart Murmur Pulmonary Medical History: Reports: Hx Asthma Denies: Hx Bronchitis, Hx COPD, Hx Pneumonia, Hx Respiratory Failure, Hx Sleep Apnea, Hx Tuberculosis Endocrine Medical History: Denies: Hx Hyperthyroidism, Hx Hypothyroidism Renal/ Medical History: Denies: Hx End Stage Renal Disease, Hx Kidney Stones, Hx Peritoneal Dialysis Malignancy Medical History: Denies: Hx Leukemia, Hx Lung Cancer GI Medical History: Reports: Hx Gastroesophageal Reflux Disease - pt states stomach gets upset easily, gastritis. Denies: Hx Crohn's Disease, Hx Hiatal Hernia, Hx Irritable Bowel, Hx Liver Failure, Hx Pancreatitis, Hx Ulcer Musculoskeletal Medical History: Reports Hx Arthritis - knee, Denies Hx Fibromyalgia, Denies Hx Muscular Dystrophy Psychiatric Medical History: Reports: Hx Depression - in the past, not being treated for many years Denies: Hx Bipolar Disorder, Hx Post Traumatic Stress Disorder, Hx Schizophrenia Traumatic Medical History: Reports: Hx Fractures - right hand/wrist Infectious Medical History: Denies: Hx HIV Past Surgical History: Reports: Hx Cholecystectomy, Hx Gynecologic Surgery - ovary removal, Hx Tubal Ligation. Denies: Hx Appendectomy, Hx Bowel Surgery, Hx Section, Hx Colostomy, Hx Coronary Artery Bypass Graft, Hx Gastric Bypass Surgery, Hx Herniorrhaphy, Hx Hysterectomy, Hx Mastectomy, Hx Pacemaker, Hx Tonsillectomy - Immunizations Immunizations up to date: Yes Hx Diphtheria, Pertussis, Tetanus Vaccination: Yes Review of Systems - Review of Systems Notes: My Normal Review Basic REVIEW OF SYSTEMS: CONSTITUTIONAL : Denies fever, chills, or sweats. Denies recent illness. EENT: Nasal bone pain CARDIOVASCULAR: Denies chest pain. RESPIRATORY: Denies cough, cold, or chest congestion. Denies shortness of breath, difficulty breathing, or wheezing. GASTROINTESTINAL: Denies abdominal pain. Denies nausea, vomiting, or diarrhea. MUSCULOSKELETAL: Denies neck or back pain or joint pain or swelling. SKIN: Denies rash or skin lesions. NEUROLOGICAL: Denies altered mental status or loss of consciousness. mild headache. Denies weakness or paralysis or loss of use of either side. Denies problems with gait or speech. Denies sensory or motor loss. ALL OTHER SYSTEMS REVIEWED AND NEGATIVE. Physical Exam - Vital signs Vitals: Temp Pulse Resp BP Pulse Ox 98.7 F 95 16 146/66 H 99 11/17/18 17:58 11/17/18 17:58 11/17/18 17:58 11/17/18 17:58 11/17/18 17:58 - Notes Notes: General Appearance: Well nourished, alert, cooperative, no acute distress, mild obvious discomfort. Vitals: reviewed, See vital signs table. Head: no swelling or tenderness to the head Eyes: PERRL, EOMI, Conjuctiva clear Mouth: No decreasd moisture Nose: Patient has a small linear laceration is approximately 2 cm over the nasal bridge. No deformity seen to the nasal bridge itself. Patient does not have any bleeding inside the nose. There is no septal hematoma on exam. Throat: No tonsillar inflammation, No airway obstruction, No lymphadenopathy Neck: Supple, no neck tenderness, No thyromegaly Lungs: No wheezing, No rales, No rhonci, No accessory muscle use, good air exchange bilaterally. Heart: Normal rate, Regular rythm, No murmur, no ru Extremities: strength 5/5 in all extremities, good pulses in all extremities, no swelling or tenderness in the extremities, no edema. Skin: warm, dry, appropriate color, no rash Neuro: speech clear, oriented x 3, normal affect, responds appropriately to questions. Course - Re-evaluation Re-evalutation: 11/18/18 06:56 Laceration was thoroughly irrigated and cleaned. Is cleaned with Hibiclens. Is irrigated with saline. It was anesthetized with lidocaine 1%. We also applied let to before cleaning it. I placed to 6 of sutures. I informed the patient to return to ER in 5 days for removal of sutures. I will place her on Keflex being that she does have a laceration she does have a small crack to the nasal bone. I informed her that she can follow-up with ear nose and throat doctor if she is having difficulty breathing through nose or does not like the way her nose looks 1 week after injury. Patient encouraged to return to ER if there is any redness or swelling, bleeding from nose, or worsening pain. Patient agrees with plan will be discharged home. Dictation of this chart was performed using voice recognition software; therefore, there may be some unintended grammatical errors. - Vital Signs Vital signs: Temp Pulse Resp BP Pulse Ox 98.7 F 98 16 142/80 H 94 11/17/18 17:58 11/18/18 00:20 11/17/18 17:58 11/18/18 00:20 11/18/18 00:20 Procedures - Laceration/Wound Repair nasal bridge Wound length (cm): 2 Wound's Depth, Shape: Linear Laceration pre-procedure: Sterile drapes applied, Other - hibiclens Anesthetic type: 1% Lidocaine Volume Anesthetic (mLs): 1 Wound explored: Clean Irrigated w/ Saline (mLs): 20 Wound Repaired With: Sutures Suture Size/Type: 6:0, Ethilon Number of Sutures: 2 Complications: No Discharge - Discharge Clinical Impression: Laceration Nasal bone fracture Qualifiers: Encounter type: initial encounter Fracture type: open Qualified Code(s): S02.2XXB - Fracture of nasal bones, initial encounter for open fracture Condition: Good Disposition: HOME, SELF-CARE Additional Instructions: You have a small crack in your nasal bone. This is towards the tip of the nasal bone. The laceration on your nose was closed with 2 stitches. The stitches need to be removed in 5 days. You can return to the ER or follow-up with your doctor to have these removed. Please gently clean the cut with soap and water every day. Pat dry. Take antibiotics as prescribed. Return to the ER immediately if you have any fevers, redness or warmth over the cut, or if you feel that is infected. You do not have to follow-up for nasal bone fracture unless you are having difficulty breathing through your nose or if you feel that your nose is crooked. If you notice any of the above mentioned symptoms after 1 week then you should follow-up with ear nose and throat doctor, Dr. Wisdom. I have provided his contact information in the discharge paperwork. Prescriptions: RX: Cephalexin Monohydrate [Keflex 500 mg Capsule] 500 mg PO BID 5 Days #10 capsule Ondansetron [Zofran Odt 4 mg Tablet] 1 tab PO Q4H PRN #10 tab.rapdis PRN Reason: For Nausea/Vomiting Referrals: MILLER WISDOM MD [ACTIVE STAFF] - Follow up in 1 week
[2018-11-18 00:28] VITALS: BP 142/80
== END 2018-11-18 00:28 | disposition home or self-care (01) ==
LOC: ER 17:42
DX: S02.2XXB Fracture of nasal bones, initial encounter for open fracture (principal); W01.0XXA Fall on same level from slipping, tripping and stumbling without subsequent striking against object, initial encounter; J45.909 Unspecified asthma, uncomplicated; Z88.2 Allergy status to sulfonamides
CPT/HCPCS: 99283; 70450; 70486; 72125; 12011; A9270 ×4; J3490 ×2; S0119

== ENCOUNTER 2018-11-22 12:49 | Emergency (ER) | payer MEDICARE, MEDICAID ==
[2018-11-22 12:54] VITALS: BP 139/68
--- NOTE | 2018-11-22 13:32 | ER Document Report ---
HPI - HPI Time Seen by Provider: 11/22/18 12:58 Pain Level: 0 Context: Patient is a 73-year-old female who presents to the emergency department to have her sutures removed. She has 2 sutures on the bridge of her nose that were placed 5 days ago after a fall. She denies any fever, body aches, chills, or any other symptoms. Denies any purulent drainage. She does have an ENT referral for her congestion. - CONSTITUTIONAL Constitutional: DENIES: Fever, Chills - RESPIRATORY Respiratory: DENIES: Trouble Breathing - REPRODUCTIVE Reproductive: DENIES: : - MUSCULOSKELETAL Musculoskeletal: DENIES: Extremity pain - DERM Skin Color: Normal Skin Problems: Laceration - Repaired Past Medical History - Social History Smoking Status: Unknown if Ever Smoked Family History: CAD, Malignancy - Past Medical History Cardiac Medical History: Reports: Hx Hypercholesterolemia Denies: Hx Atrial Fibrillation, Hx Congestive Heart Failure, Hx Coronary Artery Disease, Hx Heart Attack, Hx Hypertension, Hx Peripheral Vascular Disease, Hx Pulmonary Embolism, Hx Heart Murmur Pulmonary Medical History: Reports: Hx Asthma Denies: Hx Bronchitis, Hx COPD, Hx Pneumonia, Hx Respiratory Failure, Hx Sleep Apnea, Hx Tuberculosis Endocrine Medical History: Denies: Hx Hyperthyroidism, Hx Hypothyroidism Renal/ Medical History: Denies: Hx End Stage Renal Disease, Hx Kidney Stones, Hx Peritoneal Dialysis Malignancy Medical History: Denies: Hx Leukemia, Hx Lung Cancer GI Medical History: Reports: Hx Gastroesophageal Reflux Disease - pt states stomach gets upset easily, gastritis. Denies: Hx Crohn's Disease, Hx Hiatal Hernia, Hx Irritable Bowel, Hx Liver Failure, Hx Pancreatitis, Hx Ulcer Musculoskeletal Medical History: Reports Hx Arthritis - knee, Denies Hx Fibromyalgia, Denies Hx Muscular Dystrophy Psychiatric Medical History: Reports: Hx Depression - in the past, not being treated for many years Denies: Hx Bipolar Disorder, Hx Post Traumatic Stress Disorder, Hx Schizophrenia Traumatic Medical History: Reports: Hx Fractures - right hand/wrist Infectious Medical History: Denies: Hx HIV Past Surgical History: Reports: Hx Cholecystectomy, Hx Gynecologic Surgery - ovary removal, Hx Tubal Ligation. Denies: Hx Appendectomy, Hx Bowel Surgery, Hx Section, Hx Colostomy, Hx Coronary Artery Bypass Graft, Hx Gastric Bypass Surgery, Hx Herniorrhaphy, Hx Hysterectomy, Hx Mastectomy, Hx Pacemaker, Hx Tonsillectomy - Immunizations Immunizations up to date: Yes Hx Diphtheria, Pertussis, Tetanus Vaccination: Yes Vertical Provider Document - CONSTITUTIONAL Agree With Documented VS: Yes Exam Limitations: No Limitations General Appearance: No Apparent Distress - INFECTION CONTROL TRAVEL OUTSIDE OF THE [place] IN LAST 30 DAYS: No - HEENT HEENT: Normocephalic Notes: 2 sutures noted to bridge of nose - NECK Neck: Normal Inspection - RESPIRATORY Respiratory: No Respiratory Distress - CARDIOVASCULAR Cardiovascular: Regular Rhythm - MUSCULOSKELETAL/EXTREMETIES Musculoskeletal/Extremeties: FROM - NEURO Level of Consciousness: Awake, Alert, Appropriate - DERM Integumentary: Warm, Dry, No Rash, Laceration - Healed with [address] at bridge of nose Course - Re-evaluation Re-evalutation: 11/22/18 13:34 The 2 sutures were removed by myself here in the emergency department. No edema or erythema noted. The wound healed well. The patient will follow-up with the primary care provider and ENT for further evaluation. I do not suspect necrotizing fasciitis, or any other life-threatening etiology at this time. Follow-up precautions were given. Verbal discharge instructions were given to the patient. They verbalized understanding. They are stable for discharge. - Vital Signs Vital signs: Temp Pulse Resp BP Pulse Ox 98.1 F 96 18 139/68 H 100 11/22/18 12:53 11/22/18 12:53 11/22/18 12:53 11/22/18 12:53 11/22/18 12:53 Discharge - Discharge Clinical Impression: Visit for suture removal Condition: Stable Disposition: HOME, SELF-CARE Additional Instructions: You were seen today in the emergency department to have your sutures taken out. The wound healed well. Please follow-up with your primary care provider in the ear nose and throat doctor as needed. Referrals: FRANKLIN YING MD [Primary Care Provider] - Follow up as needed
== END 2018-11-22 13:36 | disposition home or self-care (01) ==
LOC: ER 12:49
DX: S01.21XD Laceration without foreign body of nose, subsequent encounter (principal); W19.XXXD Unspecified fall, subsequent encounter; J45.909 Unspecified asthma, uncomplicated
CPT/HCPCS: 99281